=== PATIENT | female | born 1950 | race Caucasian/White ===

== ENCOUNTER 2021-08-12 17:50 | Inpatient (IN) ==
[2021-08-12] MEDS ORDERED: MOM Conc 10 ML UD.LIQ PO PRN (22:15)
[2021-08-12] MEDS ORDERED: Naloxone 0.4 MG/ML INJ IVP PRN (22:15)
[2021-08-12] MEDS ORDERED: Melatonin 3 MG TABLET PO PRN (22:15)
[2021-08-12] MEDS ORDERED: Ondansetron 4 MG/2 ML VIAL IVP PRN (22:15)
[2021-08-12] MEDS ORDERED: Perflutren Lipid Microsphere 1.3 ML in 0.9 % Sodium Chloride 8.7 ML IVP PRN (22:41)
[2021-08-12] MEDS ORDERED: *HR* Promethazine 25 MG/ML VIAL IM PRN (23:39)
[2021-08-12] MEDS ORDERED: D5% in Water 1,000 ML IVC PRN (23:41)
[2021-08-12] MEDS ORDERED: *HR* Dextrose 50 % in Water (Syg) 50 ML SYRINGE IVP PRN (23:41)
[2021-08-12] MEDS ORDERED: Dextrose Gel 15 GM/37.5 ML TUBE PO PRN ×2 (23:41)
[2021-08-13] MEDS: Insulin LISPRO 300 UNITS/3 ML VIAL SUBQ SCH ×6 (01:25→20:47)
[2021-08-13] MEDS: Acetaminophen 325 MG TABLET PO PRN ×3 (01:29→17:20)
[2021-08-13 04:44] LABS: Basophils % 0.3 %; Eosinophils # 0.1 K/mcL (0.0-0.6); Eosinophils % 2.2 %; Hematocrit 26.3 % (35.3-44.9); Hemoglobin 8.2 g/dL (11.5-15.4); Immature Granulocytes % 0.2 % (0-4); Lymphocytes # 0.8 K/mcL (0.6-4.6); Lymphocytes % 13.4 %; Mean Corpuscular HGB Conc 31.2 g/dL (31.6-35.5); Mean Corpuscular Hemoglobin 27.2 pg (28.0-33.3); Mean Corpuscular Volume 87.1 fL (83.0-100.0); Mean Platelet Volume 10.6 fL (9.4-12.4); Monocytes # 0.4 K/mcL (0.0-1.3); Monocytes % 7.2 %; Neutrophils # 4.6 K/mcL (1.6-8.9); Platelet Count 171 K/mcL (140-400); Red Blood Count 3.02 M/mcL (3.82-4.97); Red Cell Distribution Width 20.4 % (11.5-14.5); Segmented Neutrophils % 76.7 %
[2021-08-13 04:56] LABS: INR 1.1; Prothrombin Time 12.1 Seconds (9.4-12.1)
[2021-08-13 05:10] LABS: Alanine Aminotransferase < 3 Units/L (7-52); Albumin/Globulin Ratio 0.8 (1.1-2.2); Alkaline Phosphatase 45 Units/L (34-104); Aspartate Amino Transferase 10 Units/L (13-39); BUN/Creatinine Ratio 9 (6-26); Bilirubin,Total 0.4 mg/dL (0.3-1.0); Blood Urea Nitrogen 7 mg/dL (8-23); Calcium 8.6 mg/dL (8.6-10.3); Carbon Dioxide 29 mEq/L (23-29); Chloride 103 mEq/L (98-107); Globulin 3.8 g/dL (2.4-3.5); Glucose 95 mg/dL (70-105); Magnesium 1.8 mg/dL (1.6-2.6); Osmolality,Calculated 284 (280-300); Phosphorous 3.3 mg/dL (2.7-4.5); Potassium 3.1 mEq/L (3.5-5.1); Sodium 138 mEq/L (136-145); Total Protein 6.8 g/dL (6.4-8.9); eGFR For African Americans > 60 (> 60); eGFR For Non-African Americans > 60 (> 60)
[2021-08-13 05:21] LABS: Thyroid Stimulating Hormone 3.655 mcIU/mL (0.340-5.600)
[2021-08-13] MEDS: Pantoprazole 40 MG VIAL IVP SCH ×2 (05:24→17:08)
[2021-08-13] MEDS ORDERED: Hyaluronidase 200 UNIT in 0.9 % Sodium Chloride 10 ML SQ ONE (07:51)
[2021-08-13] MEDS ORDERED: MetroNIDAZOLE 500 MG/100 ML 500 MG/100 ML BAG IVPB SCH (08:00)
[2021-08-13] MEDS: metroNIDAZOLE 500 MG TABLET PO SCH ×2 (14:39→19:55)
[2021-08-13] MEDS: carvediloL 6.25 MG TABLET PO SCH ×2 (14:40→17:17)
[2021-08-13 19:41] LABS: Hematocrit 27.5 % (35.3-44.9); Hemoglobin 8.1 g/dL (11.5-15.4); Mean Corpuscular HGB Conc 29.5 g/dL (31.6-35.5); Mean Corpuscular Hemoglobin 26.9 pg (28.0-33.3); Mean Corpuscular Volume 91.4 fL (83.0-100.0); Mean Platelet Volume 10.9 fL (9.4-12.4); Platelet Count 123 K/mcL (140-400); Red Blood Count 3.01 M/mcL (3.82-4.97); Red Cell Distribution Width 20.3 % (11.5-14.5); White Blood Count 4.7 K/mcL (4.3-11.1)
[2021-08-14 01:59] LABS: Basophils % 0.5 %; Eosinophils # 0.3 K/mcL (0.0-0.6); Eosinophils % 7.8 %; Hematocrit 25.1 % (35.3-44.9); Immature Granulocytes % 0.2 % (0-4); Lymphocytes % 24.1 %; Mean Corpuscular HGB Conc 31.9 g/dL (31.6-35.5); Mean Corpuscular Hemoglobin 27.8 pg (28.0-33.3); Mean Corpuscular Volume 87.2 fL (83.0-100.0); Mean Platelet Volume 10.6 fL (9.4-12.4); Monocytes # 0.4 K/mcL (0.0-1.3); Monocytes % 9.4 %; Neutrophils # 2.5 K/mcL (1.6-8.9); Platelet Count 141 K/mcL (140-400); Red Blood Count 2.88 M/mcL (3.82-4.97); Red Cell Distribution Width 20.1 % (11.5-14.5); White Blood Count 4.2 K/mcL (4.3-11.1)
[2021-08-14 02:12] LABS: Alanine Aminotransferase < 3 Units/L (7-52); Albumin 2.9 g/dL (3.5-5.7); Albumin/Globulin Ratio 0.8 (1.1-2.2); Alkaline Phosphatase 50 Units/L (34-104); Aspartate Amino Transferase 8 Units/L (13-39); BUN/Creatinine Ratio 8 (6-26); Bilirubin,Total 0.4 mg/dL (0.3-1.0); Blood Urea Nitrogen 7 mg/dL (8-23); Calcium 8.6 mg/dL (8.6-10.3); Carbon Dioxide 29 mEq/L (23-29); Chloride 103 mEq/L (98-107); Globulin 3.6 g/dL (2.4-3.5); Glucose 84 mg/dL (70-105); Osmolality,Calculated 281 (280-300); Potassium 3.1 mEq/L (3.5-5.1); Sodium 137 mEq/L (136-145); Total Protein 6.5 g/dL (6.4-8.9); eGFR For African Americans > 60 (> 60); eGFR For Non-African Americans > 60 (> 60)
[2021-08-14] MEDS: Pantoprazole 40 MG VIAL IVP SCH ×2 (03:43→18:06)
[2021-08-14] MEDS: Insulin LISPRO 300 UNITS/3 ML VIAL SUBQ SCH ×4 (08:37→21:27)
[2021-08-14] MEDS: Acetaminophen 325 MG TABLET PO PRN ×2 (09:01→21:23)
[2021-08-14] MEDS: carvediloL 6.25 MG TABLET PO SCH ×2 (09:01→18:13)
[2021-08-14] MEDS: metroNIDAZOLE 500 MG TABLET PO SCH ×3 (09:01→21:23)
[2021-08-14] MEDS ORDERED: Potassium Chloride Elixir 20 MEQ/15 ML UDC PO ONE (11:36)
[2021-08-15 03:28] LABS: Basophils % 0.4 %; Eosinophils # 0.3 K/mcL (0.0-0.6); Eosinophils % 7.1 %; Hematocrit 26.2 % (35.3-44.9); Hemoglobin 7.9 g/dL (11.5-15.4); Immature Granulocytes % 0.4 % (0-4); Lymphocytes # 1.3 K/mcL (0.6-4.6); Lymphocytes % 27.8 %; Mean Corpuscular HGB Conc 30.2 g/dL (31.6-35.5); Mean Corpuscular Hemoglobin 26.6 pg (28.0-33.3); Mean Corpuscular Volume 88.2 fL (83.0-100.0); Mean Platelet Volume 10.1 fL (9.4-12.4); Monocytes # 0.4 K/mcL (0.0-1.3); Monocytes % 8.8 %; Neutrophils # 2.6 K/mcL (1.6-8.9); Platelet Count 125 K/mcL (140-400); Red Blood Count 2.97 M/mcL (3.82-4.97); Red Cell Distribution Width 20.5 % (11.5-14.5); Segmented Neutrophils % 55.5 %; White Blood Count 4.7 K/mcL (4.3-11.1)
[2021-08-15 03:42] LABS: Alanine Aminotransferase < 3 Units/L (7-52); Albumin 2.9 g/dL (3.5-5.7); Albumin/Globulin Ratio 0.8 (1.1-2.2); Alkaline Phosphatase 49 Units/L (34-104); Aspartate Amino Transferase 10 Units/L (13-39); BUN/Creatinine Ratio 8 (6-26); Bilirubin,Total 0.4 mg/dL (0.3-1.0); Blood Urea Nitrogen 7 mg/dL (8-23); Calcium 8.7 mg/dL (8.6-10.3); Carbon Dioxide 27 mEq/L (23-29); Chloride 106 mEq/L (98-107); Globulin 3.8 g/dL (2.4-3.5); Glucose 88 mg/dL (70-105); Osmolality,Calculated 281 (280-300); Potassium 3.7 mEq/L (3.5-5.1); Sodium 137 mEq/L (136-145); Total Protein 6.7 g/dL (6.4-8.9); eGFR For African Americans > 60 (> 60); eGFR For Non-African Americans > 60 (> 60)
[2021-08-15] MEDS: Pantoprazole 40 MG VIAL IVP SCH ×2 (06:12→16:40)
[2021-08-15] MEDS: Acetaminophen 325 MG TABLET PO PRN ×3 (06:42→23:11)
[2021-08-15] MEDS: Insulin LISPRO 300 UNITS/3 ML VIAL SUBQ SCH ×4 (09:46→20:50)
[2021-08-15] MEDS: carvediloL 6.25 MG TABLET PO SCH ×2 (09:51→16:34)
[2021-08-15] MEDS: metroNIDAZOLE 500 MG TABLET PO SCH ×3 (09:52→20:49)
[2021-08-15] MEDS: Gabapentin 300 MG CAPSULE PO SCH ×2 (16:33→20:49)
[2021-08-15] MEDS: Ipratropium/Albuterol Neb 3 ML IH PRN (20:27)
[2021-08-15] MEDS: Divalproex (12 HR) 250 MG TABLET PO SCH (20:49)
[2021-08-16] MEDS: Ipratropium/Albuterol Neb 3 ML IH PRN (00:16)
[2021-08-16 03:19] LABS: BUN/Creatinine Ratio 10 (6-26); Blood Urea Nitrogen 8 mg/dL (8-23); Calcium 8.7 mg/dL (8.6-10.3); Carbon Dioxide 27 mEq/L (23-29); Chloride 105 mEq/L (98-107); Glucose 89 mg/dL (70-105); Osmolality,Calculated 282 (280-300); Potassium 3.6 mEq/L (3.5-5.1); Sodium 137 mEq/L (136-145); eGFR For African Americans > 60 (> 60); eGFR For Non-African Americans > 60 (> 60)
[2021-08-16] MEDS: Pantoprazole 40 MG VIAL IVP SCH (06:15)
[2021-08-16] MEDS: Insulin LISPRO 300 UNITS/3 ML VIAL SUBQ SCH ×4 (07:56→21:37)
[2021-08-16] MEDS: Divalproex (12 HR) 250 MG TABLET PO SCH ×2 (08:08→21:28)
[2021-08-16] MEDS: Gabapentin 300 MG CAPSULE PO SCH ×3 (08:08→21:29)
[2021-08-16] MEDS: metroNIDAZOLE 500 MG TABLET PO SCH ×3 (08:08→21:28)
[2021-08-16] MEDS: carvediloL 6.25 MG TABLET PO SCH ×2 (08:08→16:07)
[2021-08-16] MEDS: Acetaminophen 325 MG TABLET PO PRN ×2 (12:09→21:29)
[2021-08-17] MEDS: Ipratropium/Albuterol Neb 3 ML IH PRN (00:33)
[2021-08-17 06:13] LABS: BUN/Creatinine Ratio 10 (6-26); Blood Urea Nitrogen 11 mg/dL (8-23); Calcium 8.6 mg/dL (8.6-10.3); Carbon Dioxide 30 mEq/L (23-29); Chloride 106 mEq/L (98-107); Glucose 106 mg/dL (70-105); Osmolality,Calculated 286 (280-300); Potassium 3.8 mEq/L (3.5-5.1); Sodium 138 mEq/L (136-145); eGFR For African Americans > 60 (> 60); eGFR For Non-African Americans 50 (> 60)
[2021-08-17] MEDS: Insulin LISPRO 300 UNITS/3 ML VIAL SUBQ SCH ×3 (09:22→16:01)
[2021-08-17] MEDS: Gabapentin 300 MG CAPSULE PO SCH ×2 (10:15→15:58)
[2021-08-17] MEDS: carvediloL 6.25 MG TABLET PO SCH ×2 (10:15→15:57)
[2021-08-17] MEDS: Divalproex (12 HR) 250 MG TABLET PO SCH (10:16)
[2021-08-17] MEDS: metroNIDAZOLE 500 MG TABLET PO SCH ×2 (10:16→15:57)
[2021-08-17] MEDS: Acetaminophen 325 MG TABLET PO PRN (10:19)
[2021-08-17 10:20] LABS: Hematocrit 30.4 % (35.3-44.9); Hemoglobin 9.1 g/dL (11.5-15.4)
[2021-08-17] MEDS ORDERED: Apixaban 5 MG TABLET PO SCH (10:45)
[2021-08-17 19:02] VITALS: BP 129/66; PULSE 81; TEMP 98.9; O2SAT 92
[2021-08-18] MEDS ORDERED: Aspirin Enteric Coated 81 MG Tablet PO SCH (09:00)
[2021-08-18] MEDS ORDERED: NON-FORMULARY MEDICATION 1 EACH EACH (Pantoprazole Sodium [Protonix] 40 MG Tablet.Dr) PO SCH (09:00)
== END 2021-08-17 19:29 | disposition home health service (06) | DRG 377 ==
LOC: 3ANU → OBSVTOIN 21:55 → SUATTDRO 21:55
PROVIDERS: ADMIT Pharmacist; ATTEND Family Medicine

== ENCOUNTER 2021-10-02 19:32 | Inpatient (IN) ==
[2021-10-03] MEDS ORDERED: Naloxone 0.4 MG/ML INJ IVP PRN (04:18)
[2021-10-03] MEDS ORDERED: Melatonin 3 MG TABLET PO PRN (04:18)
[2021-10-03 06:02] LABS: Basophils % 0.4 %; Eosinophils # 0.1 K/mcL (0.0-0.6); Hematocrit 26.3 % (35.3-44.9); Hemoglobin 8.2 g/dL (11.5-15.4); Immature Granulocytes % 0.3 % (0-4); Lymphocytes # 1.6 K/mcL (0.6-4.6); Lymphocytes % 22.9 %; Mean Corpuscular HGB Conc 31.2 g/dL (31.6-35.5); Mean Corpuscular Hemoglobin 27.5 pg (28.0-33.3); Mean Corpuscular Volume 88.3 fL (83.0-100.0); Mean Platelet Volume 10.9 fL (9.4-12.4); Monocytes # 0.6 K/mcL (0.0-1.3); Monocytes % 8.7 %; Neutrophils # 4.5 K/mcL (1.6-8.9); Platelet Count 212 K/mcL (140-400); Red Blood Count 2.98 M/mcL (3.82-4.97); Red Cell Distribution Width 19.7 % (11.5-14.5); Segmented Neutrophils % 66.7 %; White Blood Count 6.8 K/mcL (4.3-11.1)
[2021-10-03 06:11] LABS: INR 1.1; Prothrombin Time 12.5 Seconds (9.4-12.1)
[2021-10-03 06:13] LABS: Activated Partial Thrombo Time 24.7 Seconds (26.0-36.0)
[2021-10-03 06:17] LABS: Chol/HDL Ratio 5.5 (0-4.9); Phosphorous 2.6 mg/dL (2.7-4.5)
[2021-10-03 06:18] LABS: BUN/Creatinine Ratio 9 (6-26); Blood Urea Nitrogen 8 mg/dL (8-23); Calcium 8.8 mg/dL (8.6-10.3); Carbon Dioxide 31 mEq/L (23-29); Chloride 97 mEq/L (98-107); Glucose 97 mg/dL (70-105); Osmolality,Calculated 276 (280-300); Potassium 2.8 mEq/L (3.5-5.1); Sodium 134 mEq/L (136-145); eGFR For African Americans > 60 (> 60); eGFR For Non-African Americans > 60 (> 60)
[2021-10-03] MEDS ORDERED: Furosemide 20 MG/2 ML VIAL IVP ONE (06:42)
[2021-10-03] MEDS: Insulin LISPRO 300 UNITS/3 ML VIAL SUBQ SCH ×3 (09:42→18:47)
[2021-10-03] MEDS: Multivit/Ca/Min/Fe/FA 1 TAB TABLET PO SCH (09:54)
[2021-10-03] MEDS: Apixaban 5 MG TABLET PO SCH ×2 (09:54→21:14)
[2021-10-03] MEDS: Furosemide 40 MG TABLET PO SCH ×2 (09:54→21:14)
[2021-10-03] MEDS: Aspirin 81 MG TAB.CHEW PO SCH (09:54)
[2021-10-03] MEDS: Chlorhexidine Rinse 15 ML MOUTHWASH MM SCH ×2 (09:54→21:15)
[2021-10-03] MEDS: metroNIDAZOLE 500 MG TABLET PO SCH ×3 (09:54→21:14)
[2021-10-03] MEDS: Nicotine 21 MG PATCH.TD24 TD SCH (09:55)
[2021-10-03] MEDS: Divalproex (12 HR) 250 MG TABLET PO SCH ×2 (09:55→21:13)
[2021-10-03] MEDS: Lactobacillus 1 EACH CAP.SPRINK PO SCH ×2 (09:55→21:14)
[2021-10-03] MEDS: Ipratropium/Albuterol Neb 3 ML IH SCH ×3 (11:40→20:39)
[2021-10-03] MEDS: Budesonide/Formoterol 80/4.5 1 PUFF INH IH SCH ×2 (11:41→20:40)
[2021-10-03] MEDS: carvediloL 6.25 MG TABLET PO SCH ×2 (12:15→18:49)
[2021-10-03] MEDS: Acetaminophen 325 MG TABLET PO PRN (21:59)
[2021-10-04] MEDS: Acetaminophen 325 MG TABLET PO PRN (01:28)
[2021-10-04] MEDS: Ipratropium/Albuterol Neb 3 ML IH SCH ×2 (04:09→08:14)
[2021-10-04] MEDS: Multivit/Ca/Min/Fe/FA 1 TAB TABLET PO SCH (08:03)
[2021-10-04] MEDS: Lactobacillus 1 EACH CAP.SPRINK PO SCH ×2 (08:04→20:39)
[2021-10-04] MEDS: metroNIDAZOLE 500 MG TABLET PO SCH ×3 (08:04→20:39)
[2021-10-04] MEDS: Divalproex (12 HR) 250 MG TABLET PO SCH ×2 (08:04→20:48)
[2021-10-04] MEDS: carvediloL 6.25 MG TABLET PO SCH ×2 (08:04→17:17)
[2021-10-04] MEDS: Apixaban 5 MG TABLET PO SCH (08:04)
[2021-10-04] MEDS: Aspirin 81 MG TAB.CHEW PO SCH (08:04)
[2021-10-04] MEDS: Nicotine 21 MG PATCH.TD24 TD SCH (08:04)
[2021-10-04] MEDS: Furosemide 40 MG TABLET PO SCH ×2 (08:04→20:39)
[2021-10-04] MEDS: Chlorhexidine Rinse 15 ML MOUTHWASH MM SCH ×2 (08:09→21:00)
[2021-10-04] MEDS: Budesonide/Formoterol 80/4.5 1 PUFF INH IH SCH ×2 (08:14→21:11)
[2021-10-04] MEDS: Insulin LISPRO 300 UNITS/3 ML VIAL SUBQ SCH ×3 (08:14→17:16)
[2021-10-04 08:52] LABS: Basophils % 0.5 %; Eosinophils # 0.1 K/mcL (0.0-0.6); Eosinophils % 1.5 %; Hemoglobin 7.8 g/dL (11.5-15.4); Immature Granulocytes % 0.5 % (0-4); Lymphocytes # 1.2 K/mcL (0.6-4.6); Lymphocytes % 20.6 %; Mean Corpuscular Hemoglobin 27.2 pg (28.0-33.3); Mean Corpuscular Volume 90.6 fL (83.0-100.0); Mean Platelet Volume 10.4 fL (9.4-12.4); Monocytes # 0.5 K/mcL (0.0-1.3); Monocytes % 7.7 %; Neutrophils # 4.1 K/mcL (1.6-8.9); Platelet Count 177 K/mcL (140-400); Red Blood Count 2.87 M/mcL (3.82-4.97); Red Cell Distribution Width 19.4 % (11.5-14.5); Segmented Neutrophils % 69.2 %
[2021-10-04 09:11] LABS: Calcium 8.4 mg/dL (8.6-10.3)
[2021-10-04] MEDS ORDERED: 0.9 % Sodium Chloride 250 ML ONE (10:45)
[2021-10-04] MEDS ORDERED: Perflutren Lipid Microsphere 1.3 ML in 0.9 % Sodium Chloride 8.7 ML IVP PRN (13:35)
[2021-10-04] MEDS: Gabapentin 300 MG CAPSULE PO SCH (20:39)
[2021-10-05] MEDS: Insulin LISPRO 300 UNITS/3 ML VIAL SUBQ SCH ×3 (08:30→16:11)
[2021-10-05] MEDS: Gabapentin 300 MG CAPSULE PO SCH ×3 (08:43→19:24)
[2021-10-05] MEDS: metroNIDAZOLE 500 MG TABLET PO SCH ×3 (08:43→19:26)
[2021-10-05] MEDS: Lactobacillus 1 EACH CAP.SPRINK PO SCH ×2 (08:44→19:27)
[2021-10-05] MEDS: Nicotine 21 MG PATCH.TD24 TD SCH (08:44)
[2021-10-05] MEDS: carvediloL 6.25 MG TABLET PO SCH ×2 (08:44→15:59)
[2021-10-05] MEDS: Furosemide 40 MG TABLET PO SCH ×2 (08:44→19:24)
[2021-10-05] MEDS: Aspirin 81 MG TAB.CHEW PO SCH (08:44)
[2021-10-05] MEDS: Multivit/Ca/Min/Fe/FA 1 TAB TABLET PO SCH (08:44)
[2021-10-05] MEDS: Chlorhexidine Rinse 15 ML MOUTHWASH MM SCH ×3 (08:59→20:35)
[2021-10-05] MEDS: Divalproex (12 HR) 250 MG TABLET PO SCH ×2 (09:09→19:27)
[2021-10-05 09:39] LABS: Basophils % 0.2 %; Eosinophils # 0.2 K/mcL (0.0-0.6); Hematocrit 29.3 % (35.3-44.9); Hemoglobin 8.8 g/dL (11.5-15.4); Immature Granulocytes % 0.3 % (0-4); Lymphocytes # 1.3 K/mcL (0.6-4.6); Lymphocytes % 21.1 %; Mean Corpuscular Hemoglobin 27.1 pg (28.0-33.3); Mean Corpuscular Volume 90.2 fL (83.0-100.0); Mean Platelet Volume 10.2 fL (9.4-12.4); Monocytes # 0.4 K/mcL (0.0-1.3); Monocytes % 7.2 %; Neutrophils # 4.2 K/mcL (1.6-8.9); Platelet Count 202 K/mcL (140-400); Red Blood Count 3.25 M/mcL (3.82-4.97); Red Cell Distribution Width 19.5 % (11.5-14.5); Segmented Neutrophils % 68.2 %; White Blood Count 6.1 K/mcL (4.3-11.1)
[2021-10-05] MEDS: Budesonide/Formoterol 80/4.5 1 PUFF INH IH SCH ×2 (10:11→20:20)
[2021-10-05 11:43] LABS: Estimated Average Glucose 97 mg/dl
[2021-10-05 13:25] LABS: % Iron Saturation 6 % (15-50); Alanine Aminotransferase < 3 Units/L (7-52); Albumin 3.1 g/dL (3.5-5.7); Albumin/Globulin Ratio 0.8 (1.1-2.2); Alkaline Phosphatase 57 Units/L (34-104); Aspartate Amino Transferase 12 Units/L (13-39); BUN/Creatinine Ratio 11 (6-26); Bilirubin,Direct 0.1 mg/dL (0.0-0.2); Bilirubin,Indirect 0.4 mg/dL (0.0-1.0); Bilirubin,Total 0.5 mg/dL (0.3-1.0); Blood Urea Nitrogen 12 mg/dL (8-23); Calcium 8.7 mg/dL (8.6-10.3); Carbon Dioxide 31 mEq/L (23-29); Chloride 99 mEq/L (98-107); Ferritin 59 ng/mL (10-120); Folate 6.1 ng/mL (3.0-16.0); Glucose 128 mg/dL (70-105); Iron 16 mcg/dL (50-170); Magnesium 1.9 mg/dL (1.6-2.6); Osmolality,Calculated 285 (280-300); Potassium 3.2 mEq/L (3.5-5.1); Sodium 137 mEq/L (136-145); Total Protein 7.1 g/dL (6.4-8.9); Transferrin 188 mg/dL (203-362); eGFR For African Americans 57 (> 60); eGFR For Non-African Americans 47 (> 60)
[2021-10-05] MEDS ORDERED: Iron Sucrose Complex 200 MG in 0.9 % Sodium Chloride 100 ML IVPB ONE (18:03)
[2021-10-05] MEDS: Apixaban 5 MG TABLET PO SCH (19:25)
[2021-10-06 04:51] LABS: Basophils % 0.4 %; Eosinophils # 0.2 K/mcL (0.0-0.6); Eosinophils % 2.9 %; Hematocrit 25.1 % (35.3-44.9); Hemoglobin 7.5 g/dL (11.5-15.4); Immature Granulocytes % 0.2 % (0-4); Mean Corpuscular HGB Conc 29.9 g/dL (31.6-35.5); Mean Corpuscular Volume 90.3 fL (83.0-100.0); Mean Platelet Volume 10.7 fL (9.4-12.4); Monocytes # 0.4 K/mcL (0.0-1.3); Monocytes % 7.6 %; Neutrophils # 3.9 K/mcL (1.6-8.9); Platelet Count 179 K/mcL (140-400); Red Blood Count 2.78 M/mcL (3.82-4.97); Red Cell Distribution Width 19.5 % (11.5-14.5); Segmented Neutrophils % 70.9 %; White Blood Count 5.6 K/mcL (4.3-11.1)
[2021-10-06 04:56] LABS: Calcium 8.4 mg/dL (8.6-10.3); Magnesium 1.9 mg/dL (1.6-2.6); Potassium 3.9 mEq/L (3.5-5.1)
[2021-10-06] MEDS: Budesonide/Formoterol 80/4.5 1 PUFF INH IH SCH ×2 (07:46→20:35)
[2021-10-06] MEDS: Insulin LISPRO 300 UNITS/3 ML VIAL SUBQ SCH ×3 (09:15→17:52)
[2021-10-06] MEDS: metroNIDAZOLE 500 MG TABLET PO SCH ×3 (09:18→20:41)
[2021-10-06] MEDS: Nicotine 21 MG PATCH.TD24 TD SCH (09:18)
[2021-10-06] MEDS: Lactobacillus 1 EACH CAP.SPRINK PO SCH ×2 (09:19→20:41)
[2021-10-06] MEDS: carvediloL 6.25 MG TABLET PO SCH ×2 (09:19→16:18)
[2021-10-06] MEDS: Gabapentin 300 MG CAPSULE PO SCH ×3 (09:19→20:41)
[2021-10-06] MEDS: Multivit/Ca/Min/Fe/FA 1 TAB TABLET PO SCH (09:20)
[2021-10-06] MEDS: Apixaban 5 MG TABLET PO SCH ×2 (09:20→20:41)
[2021-10-06] MEDS: Aspirin 81 MG TAB.CHEW PO SCH (09:20)
[2021-10-06] MEDS: Divalproex (12 HR) 250 MG TABLET PO SCH ×2 (09:20→20:41)
[2021-10-06] MEDS: Chlorhexidine Rinse 15 ML MOUTHWASH MM SCH ×2 (09:20→20:41)
[2021-10-07 07:48] LABS: Basophils % 0.6 %; Eosinophils # 0.2 K/mcL (0.0-0.6); Eosinophils % 3.5 %; Hematocrit 23.8 % (35.3-44.9); Hemoglobin 7.4 g/dL (11.5-15.4); Immature Granulocytes % 0.2 % (0-4); Lymphocytes # 1.6 K/mcL (0.6-4.6); Lymphocytes % 29.8 %; Mean Corpuscular HGB Conc 31.1 g/dL (31.6-35.5); Mean Corpuscular Hemoglobin 27.9 pg (28.0-33.3); Mean Corpuscular Volume 89.8 fL (83.0-100.0); Mean Platelet Volume 10.9 fL (9.4-12.4); Monocytes # 0.5 K/mcL (0.0-1.3); Monocytes % 9.8 %; Platelet Count 175 K/mcL (140-400); Red Blood Count 2.65 M/mcL (3.82-4.97); Red Cell Distribution Width 19.5 % (11.5-14.5); Segmented Neutrophils % 56.1 %; White Blood Count 5.4 K/mcL (4.3-11.1)
[2021-10-07] MEDS: Nicotine 21 MG PATCH.TD24 TD SCH (07:52)
[2021-10-07] MEDS: Apixaban 5 MG TABLET PO SCH ×2 (07:52→20:14)
[2021-10-07] MEDS: Gabapentin 300 MG CAPSULE PO SCH ×3 (07:52→20:14)
[2021-10-07] MEDS: carvediloL 6.25 MG TABLET PO SCH ×2 (07:52→16:21)
[2021-10-07] MEDS: Lactobacillus 1 EACH CAP.SPRINK PO SCH ×2 (07:52→20:14)
[2021-10-07] MEDS: Divalproex (12 HR) 250 MG TABLET PO SCH ×2 (07:52→20:14)
[2021-10-07] MEDS: metroNIDAZOLE 500 MG TABLET PO SCH ×3 (07:52→20:14)
[2021-10-07] MEDS: Aspirin 81 MG TAB.CHEW PO SCH (07:52)
[2021-10-07] MEDS: Multivit/Ca/Min/Fe/FA 1 TAB TABLET PO SCH (07:52)
[2021-10-07] MEDS: Chlorhexidine Rinse 15 ML MOUTHWASH MM SCH ×2 (07:58→20:14)
[2021-10-07 08:05] LABS: Calcium 8.3 mg/dL (8.6-10.3); Magnesium 1.9 mg/dL (1.6-2.6); Potassium 3.5 mEq/L (3.5-5.1)
[2021-10-07] MEDS: Insulin LISPRO 300 UNITS/3 ML VIAL SUBQ SCH ×3 (08:13→16:24)
[2021-10-07] MEDS: Budesonide/Formoterol 80/4.5 1 PUFF INH IH SCH ×2 (08:49→21:09)
[2021-10-08 02:30] LABS: Basophils % 0.4 %; Eosinophils # 0.2 K/mcL (0.0-0.6); Eosinophils % 3.3 %; Hematocrit 23.4 % (35.3-44.9); Hemoglobin 7.3 g/dL (11.5-15.4); Immature Granulocytes % 0.2 % (0-4); Lymphocytes # 1.8 K/mcL (0.6-4.6); Lymphocytes % 34.4 %; Mean Corpuscular HGB Conc 31.2 g/dL (31.6-35.5); Mean Corpuscular Volume 89.7 fL (83.0-100.0); Mean Platelet Volume 11.1 fL (9.4-12.4); Monocytes # 0.5 K/mcL (0.0-1.3); Monocytes % 10.5 %; Neutrophils # 2.6 K/mcL (1.6-8.9); Platelet Count 164 K/mcL (140-400); Red Blood Count 2.61 M/mcL (3.82-4.97); Red Cell Distribution Width 19.4 % (11.5-14.5); Segmented Neutrophils % 51.2 %; White Blood Count 5.1 K/mcL (4.3-11.1)
[2021-10-08 02:47] LABS: Calcium 8.2 mg/dL (8.6-10.3); Potassium 3.4 mEq/L (3.5-5.1)
[2021-10-08] MEDS: Gabapentin 300 MG CAPSULE PO SCH ×3 (08:53→20:32)
[2021-10-08] MEDS: Lactobacillus 1 EACH CAP.SPRINK PO SCH ×2 (08:53→20:32)
[2021-10-08] MEDS: metroNIDAZOLE 500 MG TABLET PO SCH ×3 (08:53→20:32)
[2021-10-08] MEDS: Divalproex (12 HR) 250 MG TABLET PO SCH ×2 (08:53→20:32)
[2021-10-08] MEDS: Multivit/Ca/Min/Fe/FA 1 TAB TABLET PO SCH (08:53)
[2021-10-08] MEDS: carvediloL 6.25 MG TABLET PO SCH ×2 (08:53→16:23)
[2021-10-08] MEDS: Aspirin 81 MG TAB.CHEW PO SCH (08:53)
[2021-10-08] MEDS: Nicotine 21 MG PATCH.TD24 TD SCH (08:54)
[2021-10-08] MEDS: Chlorhexidine Rinse 15 ML MOUTHWASH MM SCH ×2 (08:55→20:31)
[2021-10-08] MEDS: Apixaban 5 MG TABLET PO SCH ×2 (09:00→15:33)
[2021-10-08] MEDS: Insulin LISPRO 300 UNITS/3 ML VIAL SUBQ SCH ×3 (09:00→17:22)
[2021-10-08] MEDS: Budesonide/Formoterol 80/4.5 1 PUFF INH IH SCH ×2 (11:10→21:09)
[2021-10-08] MEDS: Acetaminophen 325 MG TABLET PO PRN (22:33)
[2021-10-09 05:24] LABS: Basophils % 0.4 %; Eosinophils # 0.1 K/mcL (0.0-0.6); Eosinophils % 2.6 %; Hemoglobin 7.9 g/dL (11.5-15.4); Immature Granulocytes % 0.4 % (0-4); Lymphocytes # 1.4 K/mcL (0.6-4.6); Lymphocytes % 28.8 %; Mean Corpuscular HGB Conc 30.4 g/dL (31.6-35.5); Mean Corpuscular Hemoglobin 27.3 pg (28.0-33.3); Mean Platelet Volume 10.7 fL (9.4-12.4); Monocytes # 0.3 K/mcL (0.0-1.3); Monocytes % 6.4 %; Neutrophils # 3.1 K/mcL (1.6-8.9); Platelet Count 178 K/mcL (140-400); Red Blood Count 2.89 M/mcL (3.82-4.97); Red Cell Distribution Width 19.1 % (11.5-14.5); Segmented Neutrophils % 61.4 %
[2021-10-09 05:47] LABS: Platelet Estimate Normal (Normal)
[2021-10-09 05:49] LABS: Calcium 8.6 mg/dL (8.6-10.3); Potassium 3.9 mEq/L (3.5-5.1)
[2021-10-09] MEDS: Insulin LISPRO 300 UNITS/3 ML VIAL SUBQ SCH ×3 (08:32→16:31)
[2021-10-09] MEDS: Budesonide/Formoterol 80/4.5 1 PUFF INH IH SCH ×2 (08:50→20:42)
[2021-10-09] MEDS: Chlorhexidine Rinse 15 ML MOUTHWASH MM SCH ×4 (10:33→23:09)
[2021-10-09] MEDS: Divalproex (12 HR) 250 MG TABLET PO SCH ×2 (10:33→22:02)
[2021-10-09] MEDS: Lactobacillus 1 EACH CAP.SPRINK PO SCH ×2 (10:33→22:02)
[2021-10-09] MEDS: metroNIDAZOLE 500 MG TABLET PO SCH ×3 (10:33→22:02)
[2021-10-09] MEDS: Aspirin 81 MG TAB.CHEW PO SCH (10:34)
[2021-10-09] MEDS: carvediloL 6.25 MG TABLET PO SCH ×2 (10:34→17:04)
[2021-10-09] MEDS: Multivit/Ca/Min/Fe/FA 1 TAB TABLET PO SCH (10:34)
[2021-10-09] MEDS: Nicotine 21 MG PATCH.TD24 TD SCH (10:35)
[2021-10-09] MEDS: Gabapentin 300 MG CAPSULE PO SCH ×3 (10:35→22:01)
[2021-10-09] MEDS ORDERED: Cyanocobalamin (B-12) 1,000 MCG/ML VIAL SQ ONE (11:41)
[2021-10-09] MEDS: Iron Sucrose Complex 200 MG in 0.9 % Sodium Chloride 100 ML IVPB SCH (13:27)
[2021-10-09] MEDS ORDERED: SODIUM CHLORIDE/NAHCO3/KCL/PEG 4,000 ML SOLN.RECON PO ONE (17:00)
[2021-10-09] MEDS: Ondansetron 4 MG/2 ML VIAL IVP PRN (22:18)
[2021-10-10 05:24] LABS: Basophils % 0.4 %; Eosinophils # 0.1 K/mcL (0.0-0.6); Eosinophils % 1.6 %; Hematocrit 27.5 % (35.3-44.9); Hemoglobin 8.5 g/dL (11.5-15.4); Immature Granulocytes % 0.2 % (0-4); Lymphocytes # 1.3 K/mcL (0.6-4.6); Lymphocytes % 26.3 %; Mean Corpuscular HGB Conc 30.9 g/dL (31.6-35.5); Mean Corpuscular Hemoglobin 27.8 pg (28.0-33.3); Mean Corpuscular Volume 89.9 fL (83.0-100.0); Mean Platelet Volume 10.7 fL (9.4-12.4); Monocytes # 0.3 K/mcL (0.0-1.3); Monocytes % 6.7 %; Neutrophils # 3.2 K/mcL (1.6-8.9); Platelet Count 191 K/mcL (140-400); Red Blood Count 3.06 M/mcL (3.82-4.97); Red Cell Distribution Width 19.1 % (11.5-14.5); Segmented Neutrophils % 64.8 %; White Blood Count 4.9 K/mcL (4.3-11.1)
[2021-10-10 05:44] LABS: Calcium 8.6 mg/dL (8.6-10.3); Magnesium 2.3 mg/dL (1.6-2.6); Potassium 3.6 mEq/L (3.5-5.1)
[2021-10-10 06:19] LABS: Hypochromasia Present (Not Present); Platelet Estimate Normal (Normal)
[2021-10-10 06:20] LABS: Anisocytosis 1+ (Not Present)
[2021-10-10] MEDS: Budesonide/Formoterol 80/4.5 1 PUFF INH IH SCH ×2 (07:25→20:19)
[2021-10-10] MEDS ORDERED: Ondansetron 4 MG/2 ML VIAL IVP STA (08:53)
[2021-10-10] MEDS: Insulin LISPRO 300 UNITS/3 ML VIAL SUBQ SCH ×3 (09:03→17:36)
[2021-10-10] MEDS: Lactobacillus 1 EACH CAP.SPRINK PO SCH ×2 (09:18→22:06)
[2021-10-10] MEDS: carvediloL 6.25 MG TABLET PO SCH ×2 (09:18→18:36)
[2021-10-10] MEDS: metroNIDAZOLE 500 MG TABLET PO SCH ×3 (09:18→22:07)
[2021-10-10] MEDS: Divalproex (12 HR) 250 MG TABLET PO SCH ×2 (09:19→22:07)
[2021-10-10] MEDS: Gabapentin 300 MG CAPSULE PO SCH ×3 (09:19→22:07)
[2021-10-10] MEDS: Aspirin 81 MG TAB.CHEW PO SCH (09:19)
[2021-10-10] MEDS: Multivit/Ca/Min/Fe/FA 1 TAB TABLET PO SCH (09:19)
[2021-10-10] MEDS: Nicotine 21 MG PATCH.TD24 TD SCH (09:26)
[2021-10-10] MEDS: Iron Sucrose Complex 200 MG in 0.9 % Sodium Chloride 100 ML IVPB SCH (09:42)
[2021-10-10] MEDS ORDERED: SODIUM CHLORIDE/NAHCO3/KCL/PEG 4,000 ML SOLN.RECON PO ONE (17:00)
[2021-10-11] MEDS: Ondansetron 4 MG/2 ML VIAL IVP PRN (02:09)
[2021-10-11] MEDS ORDERED: Isovue-370 500 ML BOTTLE IVP ONE (02:54)
[2021-10-11 06:52] LABS: Basophils % 0.3 %; Eosinophils # 0.1 K/mcL (0.0-0.6); Hemoglobin 9.4 g/dL (11.5-15.4); Immature Granulocytes % 0.3 % (0-4); Lymphocytes # 1.3 K/mcL (0.6-4.6); Lymphocytes % 20.7 %; Mean Corpuscular HGB Conc 30.3 g/dL (31.6-35.5); Mean Corpuscular Hemoglobin 27.2 pg (28.0-33.3); Mean Corpuscular Volume 89.6 fL (83.0-100.0); Mean Platelet Volume 11.2 fL (9.4-12.4); Monocytes # 0.5 K/mcL (0.0-1.3); Monocytes % 7.3 %; Neutrophils # 4.4 K/mcL (1.6-8.9); Platelet Count 207 K/mcL (140-400); Red Blood Count 3.46 M/mcL (3.82-4.97); Red Cell Distribution Width 19.1 % (11.5-14.5); Segmented Neutrophils % 70.4 %; White Blood Count 6.3 K/mcL (4.3-11.1)
[2021-10-11 07:12] LABS: Hypochromasia Present (Not Present); Platelet Estimate Normal (Normal)
[2021-10-11] MEDS: Budesonide/Formoterol 80/4.5 1 PUFF INH IH SCH ×2 (07:36→20:46)
[2021-10-11] MEDS: Insulin LISPRO 300 UNITS/3 ML VIAL SUBQ SCH ×3 (08:47→17:00)
[2021-10-11] MEDS: carvediloL 6.25 MG TABLET PO SCH ×2 (08:48→16:28)
[2021-10-11] MEDS: Aspirin 81 MG TAB.CHEW PO SCH (08:54)
[2021-10-11] MEDS: Nicotine 21 MG PATCH.TD24 TD SCH (08:54)
[2021-10-11] MEDS: Multivit/Ca/Min/Fe/FA 1 TAB TABLET PO SCH (08:54)
[2021-10-11] MEDS: Lactobacillus 1 EACH CAP.SPRINK PO SCH ×2 (08:54→22:55)
[2021-10-11] MEDS: Gabapentin 300 MG CAPSULE PO SCH ×3 (08:54→22:56)
[2021-10-11] MEDS: Divalproex (12 HR) 250 MG TABLET PO SCH ×2 (08:54→22:55)
[2021-10-11] MEDS: metroNIDAZOLE 500 MG TABLET PO SCH (08:54)
[2021-10-11] MEDS: Apixaban 5 MG TABLET PO SCH (09:07)
[2021-10-11 10:19] LABS: Calcium 8.9 mg/dL (8.6-10.3); Magnesium 2.4 mg/dL (1.6-2.6)
[2021-10-11] MEDS: 0.9 % Sodium Chloride 1,000 ML IVC SCH ×2 (16:34→23:37)
[2021-10-11] MEDS ORDERED: Lidocaine HCL 4 ML Topical Solution (Laryng-O-Jet Kit Sterile Pak) TP ONE (19:10)
[2021-10-11] MEDS ORDERED: *HR* Propofol 200 MG/20 ML VIAL IVP ONE (19:13)
[2021-10-11] MEDS ORDERED: Lidocaine -MPF 2% 5 ML VIAL ONE (19:14)
[2021-10-11] MEDS ORDERED: *HR* FentaNYL (PF) 100 MCG/2 ML VIAL ONE (19:14)
[2021-10-11] MEDS ORDERED: *HR* Rocuronium Bromide 50 MG/5 ML VIAL ONE (19:14)
[2021-10-11] MEDS ORDERED: Ketamine HCL *QUVA* 50mg (1mL) SYRINGE ONE (19:15)
[2021-10-11] MEDS ORDERED: CefOXitin 1,000 MG VIAL ONE (19:20)
[2021-10-11] MEDS ORDERED: cefOXitin 2,000 MG in Water for inj. (sterile) 10 ML IVP ONE (19:31)
[2021-10-11] MEDS ORDERED: Ondansetron 4 MG/2 ML VIAL IVP PRN (19:44)
[2021-10-11] MEDS ORDERED: *HR* FentaNYL (PF) 100 MCG/2 ML VIAL IVP PRN (19:44)
[2021-10-11] MEDS ORDERED: Albuterol 2.5 MG/3 ML NEBULIZER IH PRN (19:44)
[2021-10-11] MEDS ORDERED: CefOXitin 2,000 MG VIAL ONE (19:47)
[2021-10-11] MEDS ORDERED: Ondansetron 4 MG/2 ML VIAL ONE (20:05)
[2021-10-11] MEDS ORDERED: Acetaminophen IV 1,000 MG/100 ML BAG IVPB ONE ×2 (20:15→20:24)
[2021-10-11] MEDS ORDERED: *HR* HYDROMORPHONE 2 MG/ML VIAL ONE (20:17)
[2021-10-11] MEDS ORDERED: Albumin Human 5% 25.0 GM/500 ML IV.SOLN ONE (20:48)
[2021-10-11] MEDS ORDERED: *HR* EPINEPHrine 1 MG/10 ML SYRINGE ONE (21:05)
[2021-10-11] MEDS ORDERED: Heparin 1,000 UNITS/500 mL 500 ML ONE (21:32)
[2021-10-11] MEDS ORDERED: *HR* Midazolam HCl 2 MG/2 ML VIAL ONE (21:32)
[2021-10-11] MEDS ORDERED: Artificial Tears SOLN 15 ML BOTTLE BOTH EYES PRN (22:46)
[2021-10-11] MEDS ORDERED: Ringers Solution, Lactated 500 ML IVC ONE (23:00)
[2021-10-11] MEDS: FentaNYL (PF) 1,000 MCG/100 ML IV.SOLN IVC SCH (23:15)
[2021-10-11] MEDS: Artificial Tears SOLN 15 ML BOTTLE BOTH EYES SCH (23:16)
[2021-10-11 23:38] LABS: ABG Base Excess 3 mEq/L (-2 to 3); ABG HCO3 29 mEq/L (21-27); ABG Oxygen Saturation 100 % (95-98); ABG PCO2 52 mmHg (35-45); ABG PH 7.35 pH Units (7.32-7.45); ABG PO2 436 mmHg (85-104); ABG TCO2 30 mEq/L (20-26); Blood Gas VT 420 cc
[2021-10-12] MEDS: MetroNIDAZOLE 500 MG/100 ML 500 MG/100 ML BAG IVPB SCH ×3 (00:48→17:32)
[2021-10-12] MEDS: Albumin Human 5% 12.5 GM/250 ML IV.SOLN IVC SCH ×4 (00:49→09:26)
[2021-10-12 01:39] LABS: Calcium 7.4 mg/dL (8.6-10.3); Magnesium 2.1 mg/dL (1.6-2.6); Phosphorous 4.6 mg/dL (2.7-4.5); Potassium 4.3 mEq/L (3.5-5.1)
[2021-10-12] MEDS ORDERED: Ringers Solution, Lactated 1,000 ML IVC ONE (01:40)
[2021-10-12 01:46] LABS: Hematocrit 16.5 % (35.3-44.9)
[2021-10-12 01:49] LABS: Hemoglobin 5.1 g/dL (11.5-15.4)
[2021-10-12 04:18] LABS: ABG Base Excess 2 mEq/L (-2 to 3); ABG HCO3 27 mEq/L (21-27); ABG Oxygen Saturation 99 % (95-98); ABG PCO2 46 mmHg (35-45); ABG PH 7.38 pH Units (7.32-7.45); ABG PO2 142 mmHg (85-104); ABG TCO2 29 mEq/L (20-26); Blood Gas VT 420 cc
[2021-10-12] MEDS: Pantoprazole 40 MG VIAL IVP SCH (05:33)
[2021-10-12] MEDS: Budesonide/Formoterol 80/4.5 1 PUFF INH IH SCH ×2 (07:37→20:01)
[2021-10-12] MEDS ORDERED: Lidocaine -MPF 1% 5 ML AMPUL INFILT ONE (08:00)
[2021-10-12 08:27] LABS: Hematocrit 15.8 % (35.3-44.9); Mean Corpuscular Hemoglobin 27.7 pg (28.0-33.3); Mean Corpuscular Volume 89.3 fL (83.0-100.0); Mean Platelet Volume 11.5 fL (9.4-12.4); Platelet Count 143 K/mcL (140-400); Red Blood Count 1.77 M/mcL (3.82-4.97); Red Cell Distribution Width 18.8 % (11.5-14.5); White Blood Count 5.6 K/mcL (4.3-11.1)
[2021-10-12 08:31] LABS: Hemoglobin 4.9 g/dL (11.5-15.4)
[2021-10-12 08:39] LABS: VBG Ionized Calcium 1.05 mmol/L (1.15-1.35)
[2021-10-12 08:40] LABS: Alanine Aminotransferase < 3 Units/L (7-52); Albumin 2.6 g/dL (3.5-5.7); Albumin/Globulin Ratio 1.2 (1.1-2.2); Alkaline Phosphatase 23 Units/L (34-104); Aspartate Amino Transferase 15 Units/L (13-39); BUN/Creatinine Ratio 20 (6-26); Bilirubin,Total 0.4 mg/dL (0.3-1.0); Blood Urea Nitrogen 33 mg/dL (8-23); Calcium 7.5 mg/dL (8.6-10.3); Carbon Dioxide 27 mEq/L (23-29); Chloride 106 mEq/L (98-107); Globulin 2.2 g/dL (2.4-3.5); Glucose 188 mg/dL (70-105); Magnesium 1.9 mg/dL (1.6-2.6); Osmolality,Calculated 294 (280-300); Phosphorous 4.3 mg/dL (2.7-4.5); Potassium 3.9 mEq/L (3.5-5.1); Sodium 136 mEq/L (136-145); Total Protein 4.8 g/dL (6.4-8.9); eGFR For African Americans 37 (> 60); eGFR For Non-African Americans 31 (> 60)
[2021-10-12] MEDS ORDERED: Calcium Gluconate 1gm/50mL 1 GM/50 ML BAG IVPB PRN (08:42)
[2021-10-12] MEDS: Chlorhexidine Rinse 15 ML MOUTHWASH MM SCH ×2 (08:52→20:29)
[2021-10-12] MEDS: Artificial Tears SOLN 15 ML BOTTLE BOTH EYES SCH ×5 (08:56→20:29)
[2021-10-12] MEDS: Midazolam HCl 50 MG/100 ML IV.SOLN IVC SCH ×3 (08:57→13:23)
[2021-10-12] MEDS: carvediloL 6.25 MG TABLET PO SCH ×2 (08:57→17:27)
[2021-10-12] MEDS: Insulin LISPRO 300 UNITS/3 ML VIAL SUBQ SCH ×3 (08:57→20:29)
[2021-10-12] MEDS: Aspirin 81 MG TAB.CHEW PO SCH (08:58)
[2021-10-12] MEDS: Gabapentin 300 MG CAPSULE PO SCH (08:59)
[2021-10-12] MEDS: Lactobacillus 1 EACH CAP.SPRINK PO SCH ×2 (08:59→18:36)
[2021-10-12] MEDS: Multivit/Ca/Min/Fe/FA 1 TAB TABLET PO SCH (08:59)
[2021-10-12] MEDS: Divalproex (12 HR) 250 MG TABLET PO SCH (08:59)
[2021-10-12 09:27] LABS: Anisocytosis 1+ (Not Present); Monocytes # 0.1 K/mcL (0.0-1.3); Neutrophils # 4.5 K/mcL (1.6-8.9)
[2021-10-12 09:28] LABS: Large Platelets Present (Not Present); Platelet Estimate Normal (Normal); Reactive Lymphocytes Present (Not Present)
[2021-10-12] MEDS: Nicotine 21 MG PATCH.TD24 TD SCH (09:46)
[2021-10-12] MEDS ORDERED: Insulin LISPRO 300 UNITS/3 ML VIAL SUBQ SCH (12:00)
[2021-10-12 12:15] LABS: Triglycerides 129 mg/dL (< 150)
[2021-10-12] MEDS ORDERED: D10% in Water 500 ML IVC PRN (12:37)
[2021-10-12] MEDS ORDERED: 0.9 % Sodium Chloride 250 ML ONE (12:38)
[2021-10-12] MEDS: Valproic Acid INJ 250 MG in 0.9 % Sodium Chloride 100 ML IVPB SCH (12:59)
[2021-10-12] MEDS: FentaNYL (PF) 1,000 MCG/100 ML IV.SOLN IVC SCH (13:12)
[2021-10-12] MEDS ORDERED: Furosemide 20 MG/2 ML VIAL IVP ONE (14:19)
[2021-10-12] MEDS ORDERED: Clinimix E 5%-15% SOLUTION 2,000 ML with MVI, adult with vitamin K 10 ML IVC SCH (17:00)
[2021-10-12] MEDS: Norepinephrine 4 MG/254 ML IV.SOLN IVC SCH (17:26)
[2021-10-12] MEDS: Fat Emulsion 250 ML IVPB SCH (17:39)
[2021-10-12 19:23] LABS: Hematocrit 22.5 % (35.3-44.9)
[2021-10-12 19:24] LABS: Hemoglobin 7.1 g/dL (11.5-15.4)
[2021-10-13] MEDS: MetroNIDAZOLE 500 MG/100 ML 500 MG/100 ML BAG IVPB SCH ×4 (00:20→23:00)
[2021-10-13] MEDS: Artificial Tears SOLN 15 ML BOTTLE BOTH EYES SCH ×7 (00:20→23:00)
[2021-10-13] MEDS: Insulin LISPRO 300 UNITS/3 ML VIAL SUBQ SCH ×7 (00:32→23:01)
[2021-10-13 00:47] LABS: VBG Ionized Calcium 1.02 mmol/L (1.15-1.35)
[2021-10-13 00:47] LABS: Hematocrit 22.1 % (35.3-44.9)
[2021-10-13 01:05] LABS: Calcium 7.1 mg/dL (8.6-10.3); Magnesium 1.8 mg/dL (1.6-2.6); Phosphorous 3.6 mg/dL (2.7-4.5); Potassium 3.7 mEq/L (3.5-5.1)
[2021-10-13] MEDS: Valproic Acid INJ 250 MG in 0.9 % Sodium Chloride 100 ML IVPB SCH ×3 (01:10→23:00)
[2021-10-13] MEDS: Calcium Gluconate 1gm/50mL 1 GM/50 ML BAG IVPB SCH ×2 (01:28→02:06)
[2021-10-13] MEDS: FentaNYL (PF) 1,000 MCG/100 ML IV.SOLN IVC SCH (04:39)
[2021-10-13 05:08] LABS: ABG Base Excess 1 mEq/L (-2 to 3); ABG HCO3 26 mEq/L (21-27); ABG Oxygen Saturation 94 % (95-98); ABG PCO2 46 mmHg (35-45); ABG PH 7.36 pH Units (7.32-7.45); ABG PO2 73 mmHg (85-104); ABG TCO2 28 mEq/L (20-26); Blood Gas VT 420 cc
[2021-10-13] MEDS: Pantoprazole 40 MG VIAL IVP SCH (05:27)
[2021-10-13] MEDS: Budesonide/Formoterol 80/4.5 1 PUFF INH IH SCH ×2 (08:13→20:13)
[2021-10-13] MEDS: Nicotine 21 MG PATCH.TD24 TD SCH (08:33)
[2021-10-13] MEDS: Lactobacillus 1 EACH CAP.SPRINK PO SCH ×2 (08:33→20:05)
[2021-10-13] MEDS: Aspirin 81 MG TAB.CHEW PO SCH (08:33)
[2021-10-13] MEDS: Chlorhexidine Rinse 15 ML MOUTHWASH MM SCH ×2 (08:34→20:05)
[2021-10-13] MEDS: carvediloL 6.25 MG TABLET PO SCH ×2 (08:52→17:06)
[2021-10-13 09:02] LABS: Hematocrit 21.9 % (35.3-44.9); Hemoglobin 6.7 g/dL (11.5-15.4); Mean Corpuscular HGB Conc 30.6 g/dL (31.6-35.5); Mean Corpuscular Hemoglobin 28.2 pg (28.0-33.3); Platelet Count 130 K/mcL (140-400); Red Blood Count 2.38 M/mcL (3.82-4.97); Red Cell Distribution Width 17.6 % (11.5-14.5)
[2021-10-13 09:11] LABS: White Blood Count 9.2 K/mcL (4.3-11.1)
[2021-10-13 09:15] LABS: Albumin 2.5 g/dL (3.5-5.7); Bilirubin,Total 0.4 mg/dL (0.3-1.0); Calcium 7.8 mg/dL (8.6-10.3); Globulin 2.4 g/dL (2.4-3.5); Magnesium 1.9 mg/dL (1.6-2.6); Phosphorous 3.4 mg/dL (2.7-4.5); Potassium 3.5 mEq/L (3.5-5.1); Total Protein 4.9 g/dL (6.4-8.9)
[2021-10-13 11:56] LABS: Eosinophils # 0.1 K/mcL (0.0-0.6); Lymphocytes # 1.2 K/mcL (0.6-4.6); Monocytes # 0.3 K/mcL (0.0-1.3); Neutrophils # 7.6 K/mcL (1.6-8.9)
[2021-10-13 11:57] LABS: Anisocytosis 1+ (Not Present); Hypochromasia Present (Not Present); Platelet Estimate Decreased (Normal); Polychromasia 1+ (Not Present); Toxic Granulation Present (Not Present)
[2021-10-13] MEDS: Multivitamin Liquid 15 ML UDC GTUBE SCH (12:08)
[2021-10-13] MEDS: Norepinephrine 4 MG/254 ML IV.SOLN IVC SCH (16:45)
[2021-10-13] MEDS: Fat Emulsion 250 ML IVPB SCH (16:58)
[2021-10-13] MEDS ORDERED: Clinimix E 5%-15% SOLUTION 2,000 ML with MVI, adult with vitamin K 10 ML IVC SCH (17:00)
[2021-10-13] MEDS: Midazolam HCl 50 MG/100 ML IV.SOLN IVC SCH (17:05)
[2021-10-14] MEDS: Midazolam HCl 50 MG/100 ML IV.SOLN IVC SCH ×2 (01:01→14:43)
[2021-10-14] MEDS: Insulin LISPRO 300 UNITS/3 ML VIAL SUBQ SCH ×6 (03:08→23:13)
[2021-10-14] MEDS: Artificial Tears SOLN 15 ML BOTTLE BOTH EYES SCH ×6 (03:08→23:11)
[2021-10-14 03:11] LABS: Basophils % 0.1 %; Eosinophils # 0.2 K/mcL (0.0-0.6); Eosinophils % 2.7 %; Hematocrit 19.1 % (35.3-44.9); Hemoglobin 6.2 g/dL (11.5-15.4); Immature Granulocytes % 1.4 % (0-4); Lymphocytes % 11.5 %; Mean Corpuscular HGB Conc 32.5 g/dL (31.6-35.5); Mean Corpuscular Hemoglobin 29.7 pg (28.0-33.3); Mean Corpuscular Volume 91.4 fL (83.0-100.0); Monocytes # 0.3 K/mcL (0.0-1.3); Neutrophils # 6.8 K/mcL (1.6-8.9); Platelet Count 144 K/mcL (140-400); Red Blood Count 2.09 M/mcL (3.82-4.97); Red Cell Distribution Width 17.4 % (11.5-14.5); Segmented Neutrophils % 81.3 %; White Blood Count 8.4 K/mcL (4.3-11.1)
[2021-10-14 03:32] LABS: Albumin 2.3 g/dL (3.5-5.7); Albumin/Globulin Ratio 0.9 (1.1-2.2); Anisocytosis 1+ (Not Present); Bilirubin,Direct 0.1 mg/dL (0.0-0.2); Bilirubin,Indirect 0.2 mg/dL (0.0-1.0); Bilirubin,Total 0.3 mg/dL (0.3-1.0); Globulin 2.5 g/dL (2.4-3.5); Platelet Estimate Normal (Normal); Smudge Cells Present (Not Present); Total Protein 4.8 g/dL (6.4-8.9)
[2021-10-14 03:33] LABS: Albumin 2.3 g/dL (3.5-5.7); Albumin/Globulin Ratio 0.9 (1.1-2.2); Bilirubin,Total 0.4 mg/dL (0.3-1.0); Calcium 7.4 mg/dL (8.6-10.3); Globulin 2.5 g/dL (2.4-3.5); Phosphorous 3.2 mg/dL (2.7-4.5); Potassium 3.5 mEq/L (3.5-5.1); Total Protein 4.8 g/dL (6.4-8.9)
[2021-10-14] MEDS ORDERED: Potassium Chloride Elixir 20 MEQ/15 ML UDC GTUBE ONE (03:39)
[2021-10-14 04:08] LABS: ABG Base Excess -1 mEq/L (-2 to 3); ABG HCO3 24 mEq/L (21-27); ABG Oxygen Saturation 97 % (95-98); ABG PCO2 38 mmHg (35-45); ABG PH 7.42 pH Units (7.32-7.45); ABG PO2 85 mmHg (85-104); ABG TCO2 25 mEq/L (20-26); Blood Gas VT 420 cc
[2021-10-14] MEDS: Pantoprazole 40 MG VIAL IVP SCH (05:00)
[2021-10-14] MEDS: metroNIDAZOLE 500 MG TABLET PO SCH (07:16)
[2021-10-14] MEDS: Aspirin 81 MG TAB.CHEW PO SCH (07:45)
[2021-10-14] MEDS: MetroNIDAZOLE 500 MG/100 ML 500 MG/100 ML BAG IVPB SCH ×3 (07:45→23:13)
[2021-10-14] MEDS: Chlorhexidine Rinse 15 ML MOUTHWASH MM SCH ×2 (07:45→20:02)
[2021-10-14] MEDS: Lactobacillus 1 EACH CAP.SPRINK PO SCH ×2 (07:45→20:02)
[2021-10-14] MEDS: Nicotine 21 MG PATCH.TD24 TD SCH (07:46)
[2021-10-14] MEDS: carvediloL 6.25 MG TABLET PO SCH ×2 (07:46→18:16)
[2021-10-14] MEDS: Multivitamin Liquid 15 ML UDC GTUBE SCH (07:47)
[2021-10-14] MEDS: Budesonide/Formoterol 80/4.5 1 PUFF INH IH SCH ×2 (08:23→19:48)
[2021-10-14] MEDS ORDERED: Furosemide 20 MG/2 ML VIAL IVP ONE (09:26)
[2021-10-14] MEDS: Valproic Acid INJ 250 MG in 0.9 % Sodium Chloride 100 ML IVPB SCH ×2 (12:15→23:11)
[2021-10-14] MEDS ORDERED: Iron Sucrose Complex 200 MG in 0.9 % Sodium Chloride 100 ML IVPB ONE (16:20)
[2021-10-14] MEDS ORDERED: Clinimix E 5%-15% SOLUTION 2,000 ML with MVI, adult with vitamin K 10 ML IVC SCH (17:00)
[2021-10-14] MEDS: Fat Emulsion 250 ML IVPB SCH (18:15)
[2021-10-14] MEDS: Norepinephrine 4 MG/254 ML IV.SOLN IVC SCH (18:17)
[2021-10-14] MEDS: FentaNYL (PF) 1,000 MCG/100 ML IV.SOLN IVC SCH (20:03)
[2021-10-15] MEDS: Midazolam HCl 50 MG/100 ML IV.SOLN IVC SCH ×3 (00:02→23:03)
[2021-10-15] MEDS: Artificial Tears SOLN 15 ML BOTTLE BOTH EYES SCH ×5 (03:14→19:01)
[2021-10-15] MEDS: Insulin LISPRO 300 UNITS/3 ML VIAL SUBQ SCH ×6 (03:14→23:01)
[2021-10-15 03:27] LABS: Lymphocytes % 9.6 %
[2021-10-15 03:28] LABS: VBG Ionized Calcium 1.15 mmol/L (1.15-1.35)
[2021-10-15 03:29] LABS: Basophils % 0.2 %; Eosinophils # 0.2 K/mcL (0.0-0.6); Eosinophils % 2.7 %; Hematocrit 17.6 % (35.3-44.9); Lymphocytes # 0.8 K/mcL (0.6-4.6); Mean Corpuscular HGB Conc 30.7 g/dL (31.6-35.5); Mean Corpuscular Hemoglobin 28.3 pg (28.0-33.3); Mean Corpuscular Volume 92.1 fL (83.0-100.0); Mean Platelet Volume 11.5 fL (9.4-12.4); Monocytes # 0.3 K/mcL (0.0-1.3); Monocytes % 4.1 %; Neutrophils # 6.7 K/mcL (1.6-8.9); Nucleated Red Blood Cells 0.2 /100 WBC (0); Platelet Count 136 K/mcL (140-400); Red Blood Count 1.91 M/mcL (3.82-4.97); Red Cell Distribution Width 17.9 % (11.5-14.5); Segmented Neutrophils % 82.4 %; White Blood Count 8.1 K/mcL (4.3-11.1)
[2021-10-15 03:38] LABS: Hemoglobin 5.4 g/dL (11.5-15.4)
[2021-10-15 03:47] LABS: Albumin 2.2 g/dL (3.5-5.7); Albumin/Globulin Ratio 0.8 (1.1-2.2); Bilirubin,Total 0.6 mg/dL (0.3-1.0); Calcium 7.4 mg/dL (8.6-10.3); Globulin 2.7 g/dL (2.4-3.5); Magnesium 2.1 mg/dL (1.6-2.6); Phosphorous 2.9 mg/dL (2.7-4.5); Potassium 3.7 mEq/L (3.5-5.1); Total Protein 4.9 g/dL (6.4-8.9)
[2021-10-15 04:35] LABS: ABG Base Excess 0 mEq/L (-2 to 3); ABG HCO3 25 mEq/L (21-27); ABG Oxygen Saturation 96 % (95-98); ABG PCO2 41 mmHg (35-45); ABG PH 7.38 pH Units (7.32-7.45); ABG PO2 84 mmHg (85-104); ABG TCO2 26 mEq/L (20-26); Blood Gas VT 420 cc
[2021-10-15] MEDS: Pantoprazole 40 MG VIAL IVP SCH (05:08)
[2021-10-15] MEDS: MetroNIDAZOLE 500 MG/100 ML 500 MG/100 ML BAG IVPB SCH ×3 (07:45→23:00)
[2021-10-15] MEDS: carvediloL 6.25 MG TABLET PO SCH ×2 (07:54→16:46)
[2021-10-15] MEDS: Budesonide/Formoterol 80/4.5 1 PUFF INH IH SCH ×2 (08:02→22:06)
[2021-10-15] MEDS: Chlorhexidine Rinse 15 ML MOUTHWASH MM SCH ×2 (08:04→19:14)
[2021-10-15] MEDS: Multivitamin Liquid 15 ML UDC GTUBE SCH (08:04)
[2021-10-15] MEDS: Aspirin 81 MG TAB.CHEW PO SCH (08:04)
[2021-10-15] MEDS: Nicotine 21 MG PATCH.TD24 TD SCH (08:04)
[2021-10-15] MEDS: Lactobacillus 1 EACH CAP.SPRINK PO SCH ×2 (08:04→20:00)
[2021-10-15] MEDS ORDERED: 0.9 % Sodium Chloride 250 ML ONE (09:24)
[2021-10-15] MEDS: Valproic Acid INJ 250 MG in 0.9 % Sodium Chloride 100 ML IVPB SCH ×2 (12:35→23:01)
[2021-10-15] MEDS ORDERED: Furosemide 40 MG TABLET PO SCH (13:15)
[2021-10-15] MEDS: Furosemide 40 MG/4 ML VIAL IVP SCH (13:39)
[2021-10-15 14:10] LABS: Hematocrit 24.3 % (35.3-44.9)
[2021-10-15 14:15] LABS: Hemoglobin 7.4 g/dL (11.5-15.4)
[2021-10-15] MEDS ORDERED: *HR* FentaNYL (PF) 100 MCG/2 ML VIAL IVP ONE (15:18)
[2021-10-15] MEDS: Fat Emulsion 250 ML IVPB SCH (16:43)
[2021-10-15] MEDS: Norepinephrine 4 MG/254 ML IV.SOLN IVC SCH (16:44)
[2021-10-15] MEDS ORDERED: Clinimix E 5%-15% SOLUTION 2,000 ML with MVI, adult with vitamin K 10 ML IVC SCH (17:00)
[2021-10-15] MEDS: *HR* FentaNYL (PF) 100 MCG/2 ML VIAL IVP PRN (22:30)
[2021-10-16] MEDS: *HR* FentaNYL (PF) 100 MCG/2 ML VIAL IVP PRN ×2 (02:35→23:36)
[2021-10-16 03:10] LABS: Basophils % 0.3 %; Eosinophils # 0.2 K/mcL (0.0-0.6); Eosinophils % 2.4 %; Hematocrit 22.4 % (35.3-44.9); Hemoglobin 7.2 g/dL (11.5-15.4); Immature Granulocytes % 1.6 % (0-4); Lymphocytes # 0.6 K/mcL (0.6-4.6); Lymphocytes % 8.8 %; Mean Corpuscular HGB Conc 32.1 g/dL (31.6-35.5); Mean Corpuscular Hemoglobin 28.2 pg (28.0-33.3); Mean Corpuscular Volume 87.8 fL (83.0-100.0); Mean Platelet Volume 11.4 fL (9.4-12.4); Monocytes # 0.6 K/mcL (0.0-1.3); Monocytes % 8.8 %; Neutrophils # 5.2 K/mcL (1.6-8.9); Platelet Count 151 K/mcL (140-400); Red Blood Count 2.55 M/mcL (3.82-4.97); Red Cell Distribution Width 19.9 % (11.5-14.5); Segmented Neutrophils % 78.1 %; White Blood Count 6.7 K/mcL (4.3-11.1)
[2021-10-16 03:12] LABS: VBG Ionized Calcium 1.13 mmol/L (1.15-1.35)
[2021-10-16 03:49] LABS: Albumin 2.4 g/dL (3.5-5.7); Albumin/Globulin Ratio 0.8 (1.1-2.2); Calcium 7.7 mg/dL (8.6-10.3); Phosphorous 2.9 mg/dL (2.7-4.5); Potassium 3.8 mEq/L (3.5-5.1); Total Protein 5.4 g/dL (6.4-8.9)
[2021-10-16] MEDS: Insulin LISPRO 300 UNITS/3 ML VIAL SUBQ SCH ×5 (04:05→23:20)
[2021-10-16] MEDS: Pantoprazole 40 MG VIAL IVP SCH (05:29)
[2021-10-16] MEDS: Budesonide/Formoterol 80/4.5 1 PUFF INH IH SCH ×2 (07:42→20:50)
[2021-10-16] MEDS: carvediloL 6.25 MG TABLET PO SCH ×2 (08:00→19:53)
[2021-10-16] MEDS: MetroNIDAZOLE 500 MG/100 ML 500 MG/100 ML BAG IVPB SCH ×3 (08:45→23:09)
[2021-10-16] MEDS: Nicotine 21 MG PATCH.TD24 TD SCH (08:45)
[2021-10-16] MEDS: Furosemide 40 MG/4 ML VIAL IVP SCH (08:50)
[2021-10-16] MEDS: Aspirin 81 MG TAB.CHEW PO SCH (09:43)
[2021-10-16] MEDS: Multivitamin Liquid 15 ML UDC GTUBE SCH (09:45)
[2021-10-16] MEDS: Lactobacillus 1 EACH CAP.SPRINK PO SCH ×2 (09:45→20:44)
[2021-10-16] MEDS ORDERED: Insulin LISPRO 300 UNITS/3 ML VIAL SUBQ SCH (11:49)
[2021-10-16] MEDS: Valproic Acid INJ 250 MG in 0.9 % Sodium Chloride 100 ML IVPB SCH ×2 (13:02→23:26)
[2021-10-16] MEDS ORDERED: Clinimix E 5%-15% SOLUTION 2,000 ML with MVI, adult with vitamin K 10 ML IVC SCH (17:00)
[2021-10-16] MEDS: Fat Emulsion 250 ML IVPB SCH (17:44)
[2021-10-16] MEDS: *HR* Heparin 5,000 UNIT/ML VIAL SQ SCH (19:43)
[2021-10-16] MEDS: Norepinephrine 4 MG/254 ML IV.SOLN IVC SCH (19:46)
[2021-10-16] MEDS: Ipratropium/Albuterol Neb 3 ML IH PRN (20:47)
[2021-10-16] MEDS ORDERED: Acetylcysteine 10% 2 ML INHSOL IH SCH (21:15)
[2021-10-16] MEDS: Acetylcysteine 10% 2 ML INHSOL IH SCH (21:17)
[2021-10-17] MEDS: *HR* FentaNYL (PF) 100 MCG/2 ML VIAL IVP PRN ×2 (02:49→06:24)
[2021-10-17 03:51] LABS: Hematocrit 22.2 % (35.3-44.9); Hemoglobin 7.4 g/dL (11.5-15.4); Mean Corpuscular HGB Conc 33.3 g/dL (31.6-35.5); Mean Corpuscular Hemoglobin 28.4 pg (28.0-33.3); Mean Corpuscular Volume 85.1 fL (83.0-100.0); Mean Platelet Volume 11.5 fL (9.4-12.4); Platelet Count 171 K/mcL (140-400); Red Blood Count 2.61 M/mcL (3.82-4.97); Red Cell Distribution Width 19.7 % (11.5-14.5); White Blood Count 6.4 K/mcL (4.3-11.1)
[2021-10-17 03:58] LABS: VBG Ionized Calcium 1.14 mmol/L (1.15-1.35)
[2021-10-17 04:10] LABS: Alanine Aminotransferase 9 Units/L (7-52); Albumin 2.3 g/dL (3.5-5.7); Albumin/Globulin Ratio 0.8 (1.1-2.2); Alkaline Phosphatase 92 Units/L (34-104); Aspartate Amino Transferase 41 Units/L (13-39); BUN/Creatinine Ratio 44 (6-26); Bilirubin,Total 1.7 mg/dL (0.3-1.0); Blood Urea Nitrogen 43 mg/dL (8-23); Calcium 7.9 mg/dL (8.6-10.3); Carbon Dioxide 25 mEq/L (23-29); Chloride 101 mEq/L (98-107); Globulin 2.9 g/dL (2.4-3.5); Glucose 358 mg/dL (70-105); Magnesium 1.8 mg/dL (1.6-2.6); Osmolality,Calculated 301 (280-300); Phosphorous 2.5 mg/dL (2.7-4.5); Potassium 3.3 mEq/L (3.5-5.1); Sodium 133 mEq/L (136-145); Total Protein 5.2 g/dL (6.4-8.9); eGFR For African Americans > 60 (> 60); eGFR For Non-African Americans 56 (> 60)
[2021-10-17] MEDS: Acetylcysteine 10% 2 ML INHSOL IH SCH ×4 (04:23→20:08)
[2021-10-17] MEDS: Ipratropium/Albuterol Neb 3 ML IH PRN ×4 (04:23→20:08)
[2021-10-17] MEDS ORDERED: Calcium Gluconate 1gm/50mL 1 GM/50 ML BAG IVPB PRN (04:24)
[2021-10-17] MEDS: Insulin LISPRO 300 UNITS/3 ML VIAL SUBQ SCH ×3 (04:51→20:22)
[2021-10-17] MEDS: *HR* Heparin 5,000 UNIT/ML VIAL SQ SCH ×2 (05:02→17:52)
[2021-10-17] MEDS: Pantoprazole 40 MG VIAL IVP SCH (05:22)
[2021-10-17] MEDS: MetroNIDAZOLE 500 MG/100 ML 500 MG/100 ML BAG IVPB SCH ×2 (07:40→17:52)
[2021-10-17] MEDS: Multivitamin Liquid 15 ML UDC GTUBE SCH (07:40)
[2021-10-17] MEDS: Furosemide 40 MG/4 ML VIAL IVP SCH (07:40)
[2021-10-17] MEDS: Nicotine 21 MG PATCH.TD24 TD SCH (07:40)
[2021-10-17] MEDS: carvediloL 6.25 MG TABLET PO SCH (07:41)
[2021-10-17] MEDS: Lactobacillus 1 EACH CAP.SPRINK PO SCH ×2 (07:41→20:28)
[2021-10-17] MEDS: Aspirin 81 MG TAB.CHEW PO SCH (07:41)
[2021-10-17] MEDS ORDERED: Potassium Phosphate 44 MEQ in 0.9 % Sodium Chloride 250 ML IVPB ONE (07:45)
[2021-10-17] MEDS: Budesonide/Formoterol 80/4.5 1 PUFF INH IH SCH ×2 (10:58→20:09)
[2021-10-17] MEDS ORDERED: Insulin LISPRO 300 UNITS/3 ML VIAL SUBQ SCH (12:12)
[2021-10-17] MEDS ORDERED: Insulin DETEMIR 100 UNIT/ML X5UNITS SUBQ ONE (12:45)
[2021-10-17] MEDS: Valproic Acid INJ 250 MG in 0.9 % Sodium Chloride 100 ML IVPB SCH (12:48)
[2021-10-17 15:46] LABS: BUN/Creatinine Ratio 43 (6-26); Blood Urea Nitrogen 39 mg/dL (8-23); Calcium 7.8 mg/dL (8.6-10.3); Carbon Dioxide 28 mEq/L (23-29); Chloride 101 mEq/L (98-107); Glucose 270 mg/dL (70-105); Magnesium 1.9 mg/dL (1.6-2.6); Osmolality,Calculated 299 (280-300); Potassium 3.6 mEq/L (3.5-5.1); Sodium 135 mEq/L (136-145); eGFR For African Americans > 60 (> 60); eGFR For Non-African Americans > 60 (> 60)
[2021-10-17] MEDS ORDERED: Clinimix E 5%-15% SOLUTION 2,000 ML with MVI, adult with vitamin K 10 ML IVC SCH ×2 (17:00→17:22)
[2021-10-17] MEDS ORDERED: Naloxone 0.4 MG/ML INJ IVP PRN (17:22)
[2021-10-17] MEDS ORDERED: Acetaminophen 325 MG TABLET PO PRN (17:22)
[2021-10-17] MEDS ORDERED: D10% in Water 500 ML IVC PRN (17:22)
[2021-10-17] MEDS: Insulin DETEMIR 100 UNIT/ML X5UNITS SUBQ SCH (20:33)
[2021-10-17] MEDS ORDERED: Insulin DETEMIR 100 UNIT/ML X5UNITS SUBQ SCH (21:00)
[2021-10-18] MEDS ORDERED: MetroNIDAZOLE 500 MG/100 ML 500 MG/100 ML BAG IVPB SCH
[2021-10-18] MEDS: Insulin LISPRO 300 UNITS/3 ML VIAL SUBQ SCH ×6 (00:45→20:55)
[2021-10-18] MEDS: Valproic Acid INJ 250 MG in 0.9 % Sodium Chloride 100 ML IVPB SCH ×2 (00:49→13:19)
[2021-10-18] MEDS: MetroNIDAZOLE 500 MG/100 ML 500 MG/100 ML BAG IVPB SCH ×3 (00:57→16:29)
[2021-10-18] MEDS: Ipratropium/Albuterol Neb 3 ML IH PRN ×5 (04:02→20:15)
[2021-10-18] MEDS: Acetylcysteine 10% 2 ML INHSOL IH SCH ×4 (04:04→20:15)
[2021-10-18] MEDS: *HR* Heparin 5,000 UNIT/ML VIAL SQ SCH ×2 (05:36→17:27)
[2021-10-18] MEDS: Pantoprazole 40 MG VIAL IVP SCH (05:36)
[2021-10-18 07:00] LABS: Basophils % 0.1 %; Eosinophils # 0.2 K/mcL (0.0-0.6); Eosinophils % 1.8 %; Hematocrit 21.8 % (35.3-44.9); Hemoglobin 7.4 g/dL (11.5-15.4); Immature Granulocytes % 1.6 % (0-4); Lymphocytes # 1.1 K/mcL (0.6-4.6); Lymphocytes % 11.6 %; Mean Corpuscular HGB Conc 33.9 g/dL (31.6-35.5); Mean Corpuscular Hemoglobin 28.2 pg (28.0-33.3); Mean Corpuscular Volume 83.2 fL (83.0-100.0); Monocytes % 10.3 %; Platelet Count 177 K/mcL (140-400); Red Blood Count 2.62 M/mcL (3.82-4.97); Red Cell Distribution Width 19.8 % (11.5-14.5); Segmented Neutrophils % 74.6 %; White Blood Count 9.4 K/mcL (4.3-11.1)
[2021-10-18] MEDS: Budesonide/Formoterol 80/4.5 1 PUFF INH IH SCH ×2 (07:15→20:16)
[2021-10-18 07:21] LABS: Alanine Aminotransferase 7 Units/L (7-52); Albumin 2.2 g/dL (3.5-5.7); Albumin/Globulin Ratio 0.7 (1.1-2.2); Alkaline Phosphatase 118 Units/L (34-104); Aspartate Amino Transferase 33 Units/L (13-39); BUN/Creatinine Ratio 46 (6-26); Bilirubin,Total 1.5 mg/dL (0.3-1.0); Blood Urea Nitrogen 38 mg/dL (8-23); Calcium 7.7 mg/dL (8.6-10.3); Carbon Dioxide 25 mEq/L (23-29); Chloride 103 mEq/L (98-107); Glucose 141 mg/dL (70-105); Magnesium 1.8 mg/dL (1.6-2.6); Osmolality,Calculated 289 (280-300); Phosphorous 3.9 mg/dL (2.7-4.5); Potassium 3.5 mEq/L (3.5-5.1); Sodium 134 mEq/L (136-145); Total Protein 5.2 g/dL (6.4-8.9); eGFR For African Americans > 60 (> 60); eGFR For Non-African Americans > 60 (> 60)
[2021-10-18] MEDS ORDERED: carvediloL 6.25 MG TABLET PO SCH (08:00)
[2021-10-18] MEDS ORDERED: Multivitamin Liquid 15 ML UDC GTUBE SCH (09:00)
[2021-10-18] MEDS ORDERED: Aspirin 81 MG TAB.CHEW PO SCH (09:00)
[2021-10-18] MEDS: Nicotine 21 MG PATCH.TD24 TD SCH (09:18)
[2021-10-18] MEDS: Furosemide 20 MG/2 ML VIAL IVP SCH (09:19)
[2021-10-18] MEDS: Lactobacillus 1 EACH CAP.SPRINK PO SCH (09:38)
[2021-10-18] MEDS ORDERED: Acetaminophen IV 500 MG/50 ML BAG IVPB ONE (14:00)
[2021-10-18] MEDS ORDERED: Fat Emulsion 250 ML IVPB SCH (17:00)
[2021-10-18] MEDS ORDERED: Clinimix E 5%-15% SOLUTION 2,000 ML with MVI, adult with vitamin K 10 ML, ZN/CU/MN/SE... IVC SCH (17:00)
[2021-10-18] MEDS: *HR* Metoprolol 5 MG/5 ML VIAL IVP SCH (17:27)
[2021-10-18] MEDS: Insulin DETEMIR 100 UNIT/ML X5UNITS SUBQ SCH (20:56)
[2021-10-19] MEDS: Insulin LISPRO 300 UNITS/3 ML VIAL SUBQ SCH ×6 (00:39→20:57)
[2021-10-19] MEDS: *HR* Metoprolol 5 MG/5 ML VIAL IVP SCH ×5 (00:40→18:51)
[2021-10-19] MEDS: MetroNIDAZOLE 500 MG/100 ML 500 MG/100 ML BAG IVPB SCH ×3 (00:42→16:48)
[2021-10-19] MEDS: Valproic Acid INJ 250 MG in 0.9 % Sodium Chloride 100 ML IVPB SCH ×2 (01:45→13:52)
[2021-10-19 02:38] LABS: Basophils % 0.2 %; Eosinophils # 0.3 K/mcL (0.0-0.6); Eosinophils % 2.7 %; Hematocrit 22.8 % (35.3-44.9); Hemoglobin 7.7 g/dL (11.5-15.4); Immature Granulocytes % 1.5 % (0-4); Lymphocytes # 1.3 K/mcL (0.6-4.6); Lymphocytes % 10.9 %; Mean Corpuscular HGB Conc 33.8 g/dL (31.6-35.5); Mean Corpuscular Hemoglobin 29.1 pg (28.0-33.3); Mean Platelet Volume 11.3 fL (9.4-12.4); Monocytes # 0.8 K/mcL (0.0-1.3); Monocytes % 7.2 %; Platelet Count 215 K/mcL (140-400); Red Blood Count 2.65 M/mcL (3.82-4.97); Red Cell Distribution Width 20.1 % (11.5-14.5); Segmented Neutrophils % 77.5 %; White Blood Count 11.7 K/mcL (4.3-11.1)
[2021-10-19 02:44] LABS: Neutrophils # 9.1 K/mcL (1.6-8.9)
[2021-10-19 03:00] LABS: Alanine Aminotransferase 7 Units/L (7-52); Albumin 2.3 g/dL (3.5-5.7); Albumin/Globulin Ratio 0.7 (1.1-2.2); Alkaline Phosphatase 147 Units/L (34-104); Aspartate Amino Transferase 28 Units/L (13-39); BUN/Creatinine Ratio 44 (6-26); Bilirubin,Total 1.4 mg/dL (0.3-1.0); Blood Urea Nitrogen 38 mg/dL (8-23); Calcium 7.4 mg/dL (8.6-10.3); Carbon Dioxide 25 mEq/L (23-29); Chloride 103 mEq/L (98-107); Globulin 3.2 g/dL (2.4-3.5); Glucose 107 mg/dL (70-105); Magnesium 1.8 mg/dL (1.6-2.6); Osmolality,Calculated 288 (280-300); Phosphorous 3.7 mg/dL (2.7-4.5); Potassium 3.3 mEq/L (3.5-5.1); Sodium 134 mEq/L (136-145); Total Protein 5.5 g/dL (6.4-8.9); eGFR For African Americans > 60 (> 60); eGFR For Non-African Americans > 60 (> 60)
[2021-10-19] MEDS: Ipratropium/Albuterol Neb 3 ML IH PRN ×4 (03:35→20:26)
[2021-10-19] MEDS: Acetylcysteine 10% 2 ML INHSOL IH SCH ×4 (03:35→20:27)
[2021-10-19] MEDS: *HR* Heparin 5,000 UNIT/ML VIAL SQ SCH ×2 (05:38→18:51)
[2021-10-19] MEDS: Pantoprazole 40 MG VIAL IVP SCH (05:53)
[2021-10-19] MEDS: Budesonide/Formoterol 80/4.5 1 PUFF INH IH SCH ×2 (07:31→20:27)
[2021-10-19] MEDS: Nicotine 21 MG PATCH.TD24 TD SCH (08:24)
[2021-10-19] MEDS: Furosemide 20 MG/2 ML VIAL IVP SCH (08:24)
[2021-10-19] MEDS ORDERED: Clinimix E 5%-15% SOLUTION 2,000 ML with MVI, adult with vitamin K 10 ML, ZN/CU/MN/SE... IVC SCH (17:00)
[2021-10-19] MEDS: Insulin DETEMIR 100 UNIT/ML X5UNITS SUBQ SCH (20:57)
[2021-10-20] MEDS: MetroNIDAZOLE 500 MG/100 ML 500 MG/100 ML BAG IVPB SCH ×4 (01:39→22:57)
[2021-10-20] MEDS: Insulin LISPRO 300 UNITS/3 ML VIAL SUBQ SCH ×8 (01:40→23:10)
[2021-10-20] MEDS: *HR* Metoprolol 5 MG/5 ML VIAL IVP SCH ×6 (01:40→22:59)
[2021-10-20] MEDS ORDERED: *HR* Metoprolol 5 MG/5 ML VIAL IVP ONE ×2 (02:33→07:16)
[2021-10-20 03:00] LABS: Basophils % 0.3 %; Eosinophils # 0.4 K/mcL (0.0-0.6); Eosinophils % 2.9 %; Hematocrit 25.6 % (35.3-44.9); Hemoglobin 8.1 g/dL (11.5-15.4); Immature Granulocytes % 1.3 % (0-4); Lymphocytes # 1.2 K/mcL (0.6-4.6); Lymphocytes % 9.8 %; Mean Corpuscular HGB Conc 31.6 g/dL (31.6-35.5); Mean Corpuscular Hemoglobin 27.7 pg (28.0-33.3); Mean Corpuscular Volume 87.7 fL (83.0-100.0); Monocytes # 0.7 K/mcL (0.0-1.3); Monocytes % 6.1 %; Neutrophils # 9.6 K/mcL (1.6-8.9); Platelet Count 214 K/mcL (140-400); Red Blood Count 2.92 M/mcL (3.82-4.97); Segmented Neutrophils % 79.6 %
[2021-10-20 03:42] LABS: Alanine Aminotransferase 5 Units/L (7-52); Albumin 2.4 g/dL (3.5-5.7); Albumin/Globulin Ratio 0.7 (1.1-2.2); Alkaline Phosphatase 141 Units/L (34-104); Aspartate Amino Transferase 28 Units/L (13-39); BUN/Creatinine Ratio 48 (6-26); Blood Urea Nitrogen 39 mg/dL (8-23); Calcium 7.4 mg/dL (8.6-10.3); Carbon Dioxide 22 mEq/L (23-29); Chloride 104 mEq/L (98-107); Globulin 3.4 g/dL (2.4-3.5); Glucose 167 mg/dL (70-105); Magnesium 1.9 mg/dL (1.6-2.6); Osmolality,Calculated 289 (280-300); Potassium 3.8 mEq/L (3.5-5.1); Sodium 133 mEq/L (136-145); Total Protein 5.8 g/dL (6.4-8.9); eGFR For African Americans > 60 (> 60); eGFR For Non-African Americans > 60 (> 60)
[2021-10-20] MEDS ORDERED: *HR* Heparin 5,000 UNIT/ML VIAL IVP PRN ×2 (03:44)
[2021-10-20] MEDS ORDERED: Heparin 25,000UNIT/250ML 1/2NS 25,000 UNIT/250 ML IV.SOLN IVC SCH (03:45)
[2021-10-20] MEDS: Valproic Acid INJ 250 MG in 0.9 % Sodium Chloride 100 ML IVPB SCH ×3 (04:23→23:07)
[2021-10-20 04:25] LABS: ABG Base Excess 1 mEq/L (-2 to 3); ABG HCO3 26 mEq/L (21-27); ABG Oxygen Saturation 98 % (95-98); ABG PCO2 40 mmHg (35-45); ABG PH 7.42 pH Units (7.32-7.45); ABG PO2 102 mmHg (85-104); ABG TCO2 27 mEq/L (20-26)
[2021-10-20] MEDS: Ipratropium/Albuterol Neb 3 ML IH PRN (04:35)
[2021-10-20 05:11] LABS: Heparin anti-factor XA UFH < 0.04 IU/mL (0.30-0.70); INR 1.3; Prothrombin Time 14.1 Seconds (9.4-12.1)
[2021-10-20] MEDS: Furosemide 20 MG/2 ML VIAL IVP SCH (05:41)
[2021-10-20] MEDS: Pantoprazole 40 MG VIAL IVP SCH (05:52)
[2021-10-20 07:26] LABS: ABG Base Excess -2 mEq/L (-2 to 3); ABG HCO3 26 mEq/L (21-27); ABG Oxygen Saturation 86 % (95-98); ABG PCO2 61 mmHg (35-45); ABG PH 7.24 pH Units (7.32-7.45); ABG PO2 61 mmHg (85-104); ABG TCO2 28 mEq/L (20-26)
[2021-10-20] MEDS ORDERED: FentaNYL (PF) 1,000 MCG/100 ML IV.SOLN ONE (07:41)
[2021-10-20] MEDS ORDERED: Norepinephrine 4 MG/254 ML IV.SOLN IVC ONE (07:44)
[2021-10-20] MEDS ORDERED: Dexmedetomidine HCl 400 MCG/100 ML MLS IVC ONE (07:52)
[2021-10-20] MEDS ORDERED: Artificial Tears SOLN 15 ML BOTTLE BOTH EYES PRN ×2 (07:56→09:45)
[2021-10-20] MEDS ORDERED: Norepinephrine 4 MG/254 ML IV.SOLN IVC SCH (08:00)
[2021-10-20] MEDS ORDERED: Artificial Tears SOLN 15 ML BOTTLE BOTH EYES SCH (08:00)
[2021-10-20] MEDS ORDERED: FentaNYL (PF) 1,000 MCG/100 ML IV.SOLN IVC SCH (08:00)
[2021-10-20] MEDS ORDERED: Dexmedetomidine HCl 400 MCG/100 ML MLS IVC SCH (08:00)
[2021-10-20] MEDS: Budesonide/Formoterol 80/4.5 1 PUFF INH IH SCH ×3 (08:19→20:44)
[2021-10-20] MEDS: Nicotine 21 MG PATCH.TD24 TD SCH (08:57)
[2021-10-20] MEDS ORDERED: Chlorhexidine Rinse 15 ML MOUTHWASH MM SCH (09:00)
[2021-10-20 09:41] LABS: ABG Base Excess -1 mEq/L (-2 to 3); ABG HCO3 23 mEq/L (21-27); ABG Oxygen Saturation 97 % (95-98); ABG PCO2 34 mmHg (35-45); ABG PH 7.44 pH Units (7.32-7.45); ABG PO2 86 mmHg (85-104); ABG TCO2 24 mEq/L (20-26); Blood Gas Modality ASSIST CONTROL; Blood Gas VT 450 cc
[2021-10-20] MEDS ORDERED: Naloxone 0.4 MG/ML INJ IVP PRN (09:45)
[2021-10-20] MEDS ORDERED: D10% in Water 500 ML IVC PRN (09:45)
[2021-10-20] MEDS ORDERED: Clinimix E 5%-15% SOLUTION 2,000 ML with MVI, adult with vitamin K 10 ML, ZN/CU/MN/SE... IVC SCH ×2 (09:45→17:00)
[2021-10-20] MEDS ORDERED: Ipratropium/Albuterol Neb 3 ML IH PRN (09:45)
[2021-10-20] MEDS ORDERED: *HR* Etomidate 20 MG/10 ML AMPUL IVP ONE (10:04)
[2021-10-20] MEDS ORDERED: *HR* Midazolam HCl 2 MG/2 ML VIAL ONE (10:04)
[2021-10-20] MEDS: Norepinephrine 4 MG/254 ML IV.SOLN IVC SCH ×2 (11:04→19:02)
[2021-10-20] MEDS: FentaNYL (PF) 1,000 MCG/100 ML IV.SOLN IVC SCH ×3 (11:05→22:58)
[2021-10-20] MEDS: Dexmedetomidine HCl 400 MCG/100 ML MLS IVC SCH ×4 (11:07→22:57)
[2021-10-20 11:28] LABS: Adenovirus Not Detected (Not Detect); Bordetella Pertussis Not Detected (Not Detect); Chlamydophila pneumoniae Not Detected (Not Detect); Coronavirus 229E Not Detected (Not Detect); Coronavirus HKU1 Not Detected (Not Detect); Coronavirus NL63 Not Detected (Not Detect); Coronavirus OC43 Not Detected (Not Detect); Human Metapneumovirus Not Detected (Not Detect); Human Rhinovirus/Enterovirus Not Detected (Not Detect); Influenza A Subtype 2009 H1 Not Detected (Not Detect); Influenza B Not Detected (Not Detect); Mycoplasma pneumoniae Not Detected (Not Detect); Parainfluenza Virus 1 Not Detected (Not Detect); Parainfluenza Virus 2 Not Detected (Not Detect); Parainfluenza Virus 3 Not Detected (Not Detect); Parainfluenza Virus 4 Not Detected (Not Detect); Respiratory Syncytial Virus Not Detected (Not Detect); SARS-CoV-2 Not Detected (Not Detect)
[2021-10-20] MEDS: Artificial Tears SOLN 15 ML BOTTLE BOTH EYES SCH ×4 (12:36→22:58)
[2021-10-20 13:53] LABS: Source of Body Fluid LEFT LOWER LOBE LUNG
[2021-10-20 15:17] LABS: Bacteria,Urine Few per hpf (None-Few); Bilirubin,Urine Negative (Negative); Blood,Urine Small (Negative); Budding Yeast,Urine Many per hpf (None Seen); Clarity,Urine Clear (Clear); Color,Urine Yellow (Yellow); Glucose,Urine (UA) Normal (Normal); Ketones,Urine Negative (Negative); Leukocyte Esterase,Urine Moderate (Negative); Nitrite,Urine Negative (Negative); PH,Urine 5.5 pH Units (5.0-8.0); Protein,Urine Trace mg/dL (Neg-Trace); RBC,Urine 15-30 per hpf (0-3); Specific Gravity,Urine 1.018 (1.010-1.025); Squamous Epithelial Cell,Urine Few per hpf (None-Few); Urobilinogen,Urine Normal (Normal); WBC,Urine 30-50 per hpf (0-3)
[2021-10-20] MEDS ORDERED: *HR* Dextrose 50 % in Water (Syg) 50 ML SYRINGE ONE (16:50)
[2021-10-20] MEDS ORDERED: carvediloL 6.25 MG TABLET PO SCH (17:00)
[2021-10-20] MEDS ORDERED: Fat Emulsion 250 ML IVPB SCH ×3 (17:00)
[2021-10-20 18:02] LABS: Appearance of Body Fluid Cloudy (Clear); Volume of Body Fluid 16 mL
[2021-10-20] MEDS: Chlorhexidine Rinse 15 ML MOUTHWASH MM SCH (20:11)
[2021-10-20] MEDS: Insulin DETEMIR 100 UNIT/ML X5UNITS SUBQ SCH (20:42)
[2021-10-20] MEDS ORDERED: Lactobacillus 1 EACH CAP.SPRINK PO SCH (21:00)
[2021-10-21 03:21] LABS: Basophils % 0.3 %; Hemoglobin 7.8 g/dL (11.5-15.4)
[2021-10-21 03:22] LABS: Basophils # 0.1 K/mcL (0.0-0.2); Eosinophils # 0.9 K/mcL (0.0-0.6); Eosinophils % 3.4 %; Hematocrit 24.5 % (35.3-44.9); Lymphocytes # 1.5 K/mcL (0.6-4.6); Lymphocytes % 5.7 %; Mean Corpuscular HGB Conc 31.8 g/dL (31.6-35.5); Mean Corpuscular Hemoglobin 28.1 pg (28.0-33.3); Mean Corpuscular Volume 88.1 fL (83.0-100.0); Mean Platelet Volume 10.9 fL (9.4-12.4); Monocytes # 1.3 K/mcL (0.0-1.3); Monocytes % 4.9 %; Neutrophils # 22.9 K/mcL (1.6-8.9); Nucleated Red Blood Cells 0.1 /100 WBC (0); Platelet Count 249 K/mcL (140-400); Red Blood Count 2.78 M/mcL (3.82-4.97); Segmented Neutrophils % 84.7 %
[2021-10-21 03:40] LABS: Alanine Aminotransferase 4 Units/L (7-52); Albumin 2.2 g/dL (3.5-5.7); Albumin/Globulin Ratio 0.6 (1.1-2.2); Alkaline Phosphatase 116 Units/L (34-104); Aspartate Amino Transferase 24 Units/L (13-39); BUN/Creatinine Ratio 43 (6-26); Bilirubin,Total 1.3 mg/dL (0.3-1.0); Blood Urea Nitrogen 36 mg/dL (8-23); Calcium 7.3 mg/dL (8.6-10.3); Carbon Dioxide 24 mEq/L (23-29); Chloride 104 mEq/L (98-107); Globulin 3.4 g/dL (2.4-3.5); Glucose 73 mg/dL (70-105); Magnesium 1.8 mg/dL (1.6-2.6); Osmolality,Calculated 283 (280-300); Phosphorous 4.4 mg/dL (2.7-4.5); Potassium 3.8 mEq/L (3.5-5.1); Sodium 133 mEq/L (136-145); Total Protein 5.6 g/dL (6.4-8.9); eGFR For African Americans > 60 (> 60); eGFR For Non-African Americans > 60 (> 60)
[2021-10-21 04:11] LABS: Anisocytosis 1+ (Not Present); Hypochromasia Present (Not Present); Platelet Estimate Normal (Normal); Toxic Granulation Present (Not Present)
[2021-10-21] MEDS: Dexmedetomidine HCl 400 MCG/100 ML MLS IVC SCH ×3 (04:11→23:12)
[2021-10-21] MEDS: Norepinephrine 4 MG/254 ML IV.SOLN IVC SCH ×3 (04:12→21:30)
[2021-10-21] MEDS: Insulin LISPRO 300 UNITS/3 ML VIAL SUBQ SCH ×5 (04:13→20:03)
[2021-10-21] MEDS: Artificial Tears SOLN 15 ML BOTTLE BOTH EYES SCH ×5 (04:13→20:03)
[2021-10-21] MEDS: Pantoprazole 40 MG VIAL IVP SCH (05:27)
[2021-10-21] MEDS: *HR* Metoprolol 5 MG/5 ML VIAL IVP SCH ×3 (05:27→16:47)
[2021-10-21 05:56] LABS: ABG Base Excess -2 mEq/L (-2 to 3); ABG HCO3 23 mEq/L (21-27); ABG Oxygen Saturation 94 % (95-98); ABG PCO2 39 mmHg (35-45); ABG PH 7.39 pH Units (7.32-7.45); ABG PO2 73 mmHg (85-104); ABG TCO2 24 mEq/L (20-26); Blood Gas VT 450 cc
[2021-10-21] MEDS: Budesonide/Formoterol 80/4.5 1 PUFF INH IH SCH ×2 (08:35→20:52)
[2021-10-21] MEDS: MetroNIDAZOLE 500 MG/100 ML 500 MG/100 ML BAG IVPB SCH ×2 (08:54→16:42)
[2021-10-21] MEDS: Chlorhexidine Rinse 15 ML MOUTHWASH MM SCH ×2 (08:55→20:03)
[2021-10-21] MEDS: Furosemide 20 MG/2 ML VIAL IVP SCH (08:56)
[2021-10-21] MEDS: Nicotine 21 MG PATCH.TD24 TD SCH (08:56)
[2021-10-21] MEDS ORDERED: Multivitamin Liquid 15 ML UDC GTUBE SCH (09:00)
[2021-10-21] MEDS ORDERED: Aspirin 81 MG TAB.CHEW PO SCH (09:00)
[2021-10-21] MEDS: FentaNYL (PF) 1,000 MCG/100 ML IV.SOLN IVC SCH ×2 (09:35→17:38)
[2021-10-21] MEDS ORDERED: 0.9 % Sodium Chloride 250 ML ONE (11:19)
[2021-10-21] MEDS: Valproic Acid INJ 250 MG in 0.9 % Sodium Chloride 100 ML IVPB SCH (11:25)
[2021-10-21] MEDS: Vancomycin 1,250 MG/262.5 ML IV.SOLN IVPB SCH (12:21)
[2021-10-21] MEDS ORDERED: Clinimix E 5%-15% SOLUTION 2,000 ML with MVI, adult with vitamin K 10 ML, ZN/CU/MN/SE... IVC SCH (17:00)
[2021-10-21] MEDS: Insulin DETEMIR 100 UNIT/ML X5UNITS SUBQ SCH (20:05)
[2021-10-21 23:29] LABS: VBG Ionized Calcium 1.15 mmol/L (1.15-1.35)
[2021-10-21 23:39] LABS: BUN/Creatinine Ratio 42 (6-26); Blood Urea Nitrogen 36 mg/dL (8-23); Calcium 7.1 mg/dL (8.6-10.3); Carbon Dioxide 25 mEq/L (23-29); Chloride 103 mEq/L (98-107); Glucose 212 mg/dL (70-105); Magnesium 1.7 mg/dL (1.6-2.6); Osmolality,Calculated 287 (280-300); Potassium 3.7 mEq/L (3.5-5.1); Sodium 131 mEq/L (136-145); eGFR For African Americans > 60 (> 60); eGFR For Non-African Americans > 60 (> 60)
[2021-10-22] MEDS: Valproic Acid INJ 250 MG in 0.9 % Sodium Chloride 100 ML IVPB SCH ×3 (00:12→23:10)
[2021-10-22] MEDS: MetroNIDAZOLE 500 MG/100 ML 500 MG/100 ML BAG IVPB SCH ×4 (00:12→23:10)
[2021-10-22] MEDS: Vancomycin 1,250 MG/262.5 ML IV.SOLN IVPB SCH ×2 (00:12→12:21)
[2021-10-22] MEDS: Artificial Tears SOLN 15 ML BOTTLE BOTH EYES SCH ×6 (00:13→19:42)
[2021-10-22] MEDS: *HR* Metoprolol 5 MG/5 ML VIAL IVP SCH ×2 (00:13→05:40)
[2021-10-22] MEDS: Insulin LISPRO 300 UNITS/3 ML VIAL SUBQ SCH ×6 (00:44→20:11)
[2021-10-22] MEDS: FentaNYL (PF) 1,000 MCG/100 ML IV.SOLN IVC SCH ×3 (04:03→20:34)
[2021-10-22 04:30] LABS: Basophils # 0.1 K/mcL (0.0-0.2); Basophils % 0.3 %; Eosinophils # 0.9 K/mcL (0.0-0.6); Eosinophils % 4.7 %; Hematocrit 20.7 % (35.3-44.9); Hemoglobin 6.5 g/dL (11.5-15.4); Immature Granulocytes % 0.9 % (0-4); Lymphocytes # 1.2 K/mcL (0.6-4.6); Lymphocytes % 6.6 %; Mean Corpuscular HGB Conc 31.4 g/dL (31.6-35.5); Mean Corpuscular Hemoglobin 28.3 pg (28.0-33.3); Mean Platelet Volume 11.4 fL (9.4-12.4); Monocytes # 0.7 K/mcL (0.0-1.3); Monocytes % 3.9 %; Neutrophils # 15.4 K/mcL (1.6-8.9); Platelet Count 211 K/mcL (140-400); Red Cell Distribution Width 19.7 % (11.5-14.5); Segmented Neutrophils % 83.6 %; White Blood Count 18.4 K/mcL (4.3-11.1)
[2021-10-22 04:44] LABS: Alanine Aminotransferase 3 Units/L (7-52); Albumin 1.8 g/dL (3.5-5.7); Albumin/Globulin Ratio 0.6 (1.1-2.2); Alkaline Phosphatase 96 Units/L (34-104); Aspartate Amino Transferase 20 Units/L (13-39); BUN/Creatinine Ratio 43 (6-26); Bilirubin,Total 1.3 mg/dL (0.3-1.0); Blood Urea Nitrogen 35 mg/dL (8-23); Carbon Dioxide 24 mEq/L (23-29); Chloride 104 mEq/L (98-107); Glucose 176 mg/dL (70-105); Magnesium 1.7 mg/dL (1.6-2.6); Osmolality,Calculated 286 (280-300); Phosphorous 4.8 mg/dL (2.7-4.5); Potassium 3.7 mEq/L (3.5-5.1); Sodium 132 mEq/L (136-145); Total Protein 4.8 g/dL (6.4-8.9); eGFR For African Americans > 60 (> 60); eGFR For Non-African Americans > 60 (> 60)
[2021-10-22 04:54] LABS: VBG Ionized Calcium 1.16 mmol/L (1.15-1.35)
[2021-10-22 05:01] LABS: ABG Base Excess -3 mEq/L (-2 to 3); ABG HCO3 23 mEq/L (21-27); ABG Oxygen Saturation 85 % (95-98); ABG PCO2 45 mmHg (35-45); ABG PH 7.32 pH Units (7.32-7.45); ABG PO2 55 mmHg (85-104); ABG TCO2 25 mEq/L (20-26); Blood Gas Modality ASSIST CONTROL; Blood Gas VT 450 cc
[2021-10-22] MEDS: Pantoprazole 40 MG VIAL IVP SCH (05:40)
[2021-10-22] MEDS: Nicotine 21 MG PATCH.TD24 TD SCH (07:21)
[2021-10-22] MEDS: Furosemide 20 MG/2 ML VIAL IVP SCH (07:22)
[2021-10-22] MEDS: Chlorhexidine Rinse 15 ML MOUTHWASH MM SCH ×2 (07:22→19:43)
[2021-10-22] MEDS: Norepinephrine 4 MG/254 ML IV.SOLN IVC SCH ×3 (07:23→22:25)
[2021-10-22] MEDS: Budesonide/Formoterol 80/4.5 1 PUFF INH IH SCH ×2 (08:40→20:04)
[2021-10-22] MEDS: Furosemide 40 MG/4 ML VIAL IVP SCH (08:57)
[2021-10-22] MEDS ORDERED: 0.9 % Sodium Chloride 500 ML ONE (09:48)
[2021-10-22 15:04] LABS: Hematocrit 25.1 % (35.3-44.9); Hemoglobin 7.7 g/dL (11.5-15.4)
[2021-10-22] MEDS: Ipratropium/Albuterol Neb 3 ML IH SCH ×3 (15:57→23:30)
[2021-10-22] MEDS ORDERED: Clinimix 5%-20% SOLUTION 2,000 ML with MVI, adult with vitamin K 10 ML, Sodium Acetat... IVC SCH (17:00)
[2021-10-22] MEDS ORDERED: Clinimix E 5%-15% SOLUTION 2,000 ML with MVI, adult with vitamin K 10 ML, ZN/CU/MN/SE... IVC SCH (17:00)
[2021-10-22] MEDS ORDERED: Albumin Human 5% 12.5 GM/250 ML IV.SOLN IVPB ONE (19:54)
[2021-10-22] MEDS: Insulin DETEMIR 100 UNIT/ML X5UNITS SUBQ SCH (19:59)
[2021-10-23] MEDS: Artificial Tears SOLN 15 ML BOTTLE BOTH EYES SCH ×7 (00:20→23:29)
[2021-10-23] MEDS: Insulin LISPRO 300 UNITS/3 ML VIAL SUBQ SCH ×6 (02:32→20:30)
[2021-10-23] MEDS: FentaNYL (PF) 1,000 MCG/100 ML IV.SOLN IVC SCH ×4 (03:20→22:48)
[2021-10-23 03:37] LABS: Basophils % 0.2 %; Eosinophils # 0.5 K/mcL (0.0-0.6); Eosinophils % 3.4 %; Hematocrit 21.2 % (35.3-44.9); Hemoglobin 6.6 g/dL (11.5-15.4); Immature Granulocytes % 1.1 % (0-4); Lymphocytes # 0.9 K/mcL (0.6-4.6); Lymphocytes % 6.5 %; Mean Corpuscular HGB Conc 31.1 g/dL (31.6-35.5); Mean Corpuscular Hemoglobin 28.2 pg (28.0-33.3); Mean Corpuscular Volume 90.6 fL (83.0-100.0); Mean Platelet Volume 11.7 fL (9.4-12.4); Monocytes # 0.7 K/mcL (0.0-1.3); Monocytes % 4.8 %; Neutrophils # 11.5 K/mcL (1.6-8.9); Platelet Count 208 K/mcL (140-400); Red Blood Count 2.34 M/mcL (3.82-4.97); Red Cell Distribution Width 18.7 % (11.5-14.5); White Blood Count 13.7 K/mcL (4.3-11.1)
[2021-10-23 03:50] LABS: VBG Ionized Calcium 1.16 mmol/L (1.15-1.35)
[2021-10-23] MEDS: Ipratropium/Albuterol Neb 3 ML IH SCH ×6 (03:55→23:08)
[2021-10-23 04:09] LABS: Alanine Aminotransferase 3 Units/L (7-52); Albumin/Globulin Ratio 0.7 (1.1-2.2); Alkaline Phosphatase 100 Units/L (34-104); Aspartate Amino Transferase 17 Units/L (13-39); BUN/Creatinine Ratio 42 (6-26); Bilirubin,Total 1.6 mg/dL (0.3-1.0); Blood Urea Nitrogen 38 mg/dL (8-23); Calcium 7.2 mg/dL (8.6-10.3); Carbon Dioxide 21 mEq/L (23-29); Chloride 105 mEq/L (98-107); Globulin 2.9 g/dL (2.4-3.5); Glucose 174 mg/dL (70-105); Osmolality,Calculated 289 (280-300); Phosphorous 4.7 mg/dL (2.7-4.5); Potassium 4.3 mEq/L (3.5-5.1); Sodium 133 mEq/L (136-145); Total Protein 4.9 g/dL (6.4-8.9); eGFR For African Americans > 60 (> 60); eGFR For Non-African Americans > 60 (> 60)
[2021-10-23 05:14] LABS: ABG Base Excess -4 mEq/L (-2 to 3); ABG HCO3 22 mEq/L (21-27); ABG Oxygen Saturation 91 % (95-98); ABG PCO2 48 mmHg (35-45); ABG PH 7.27 pH Units (7.32-7.45); ABG PO2 70 mmHg (85-104); ABG TCO2 24 mEq/L (20-26); Blood Gas Modality ASSIST CONTROL; Blood Gas VT 450 cc
[2021-10-23] MEDS: Pantoprazole 40 MG VIAL IVP SCH (05:35)
[2021-10-23] MEDS ORDERED: 0.9 % Sodium Chloride 250 ML IVC SCH (05:45)
[2021-10-23] MEDS ORDERED: 0.9 % Sodium Chloride 250 ML ONE (07:44)
[2021-10-23] MEDS: MetroNIDAZOLE 500 MG/100 ML 500 MG/100 ML BAG IVPB SCH ×3 (07:50→23:33)
[2021-10-23] MEDS: Nicotine 21 MG PATCH.TD24 TD SCH (07:57)
[2021-10-23] MEDS: Chlorhexidine Rinse 15 ML MOUTHWASH MM SCH ×2 (08:02→20:18)
[2021-10-23] MEDS: Furosemide 40 MG/4 ML VIAL IVP SCH (08:02)
[2021-10-23] MEDS: Budesonide/Formoterol 80/4.5 1 PUFF INH IH SCH ×2 (08:27→19:45)
[2021-10-23] MEDS: Valproic Acid INJ 250 MG in 0.9 % Sodium Chloride 100 ML IVPB SCH ×2 (13:04→23:34)
[2021-10-23] MEDS ORDERED: Clinimix 5%-20% SOLUTION 2,000 ML with MVI, adult with vitamin K 10 ML, ZN/CU/MN/SE 1... IVC SCH (17:00)
[2021-10-23] MEDS ORDERED: Clinimix 5%-20% SOLUTION 2,000 ML, Parenteral Amino Acid 10% 0 ML with MVI, adult with... IVC SCH (17:00)
[2021-10-23] MEDS: Insulin DETEMIR 100 UNIT/ML X5UNITS SUBQ SCH (22:28)
[2021-10-24] MEDS: Insulin LISPRO 300 UNITS/3 ML VIAL SUBQ SCH ×7 (00:45→23:44)
[2021-10-24] MEDS: Ipratropium/Albuterol Neb 3 ML IH SCH ×6 (03:17→23:50)
[2021-10-24 03:54] LABS: Basophils % 0.2 %; Eosinophils # 0.4 K/mcL (0.0-0.6); Eosinophils % 3.9 %; Hematocrit 24.1 % (35.3-44.9); Hemoglobin 7.7 g/dL (11.5-15.4); Immature Granulocytes % 1.1 % (0-4); Lymphocytes # 0.7 K/mcL (0.6-4.6); Lymphocytes % 7.1 %; Mean Corpuscular Hemoglobin 29.1 pg (28.0-33.3); Mean Corpuscular Volume 90.9 fL (83.0-100.0); Mean Platelet Volume 11.7 fL (9.4-12.4); Monocytes # 0.6 K/mcL (0.0-1.3); Monocytes % 6.5 %; Neutrophils # 7.7 K/mcL (1.6-8.9); Platelet Count 201 K/mcL (140-400); Red Blood Count 2.65 M/mcL (3.82-4.97); Red Cell Distribution Width 18.1 % (11.5-14.5); Segmented Neutrophils % 81.2 %; White Blood Count 9.4 K/mcL (4.3-11.1)
[2021-10-24 04:11] LABS: Alanine Aminotransferase 3 Units/L (7-52); Albumin 1.9 g/dL (3.5-5.7); Albumin/Globulin Ratio 0.6 (1.1-2.2); Alkaline Phosphatase 126 Units/L (34-104); Aspartate Amino Transferase 17 Units/L (13-39); BUN/Creatinine Ratio 42 (6-26); Bilirubin,Total 1.9 mg/dL (0.3-1.0); Blood Urea Nitrogen 37 mg/dL (8-23); Calcium 7.4 mg/dL (8.6-10.3); Carbon Dioxide 22 mEq/L (23-29); Chloride 105 mEq/L (98-107); Globulin 3.1 g/dL (2.4-3.5); Glucose 134 mg/dL (70-105); Osmolality,Calculated 285 (280-300); Phosphorous 4.4 mg/dL (2.7-4.5); Potassium 3.9 mEq/L (3.5-5.1); Sodium 132 mEq/L (136-145); eGFR For African Americans > 60 (> 60); eGFR For Non-African Americans > 60 (> 60)
[2021-10-24 04:23] LABS: ABG Base Excess -4 mEq/L (-2 to 3); ABG HCO3 23 mEq/L (21-27); ABG Oxygen Saturation 91 % (95-98); ABG PCO2 52 mmHg (35-45); ABG PH 7.26 pH Units (7.32-7.45); ABG PO2 71 mmHg (85-104); ABG TCO2 25 mEq/L (20-26); Blood Gas Modality ASSIST CONTROL; Blood Gas VT 450 cc
[2021-10-24 04:26] LABS: VBG Ionized Calcium 1.22 mmol/L (1.15-1.35)
[2021-10-24] MEDS: Artificial Tears SOLN 15 ML BOTTLE BOTH EYES SCH ×6 (04:50→23:52)
[2021-10-24] MEDS: Pantoprazole 40 MG VIAL IVP SCH (05:49)
[2021-10-24] MEDS: FentaNYL (PF) 1,000 MCG/100 ML IV.SOLN IVC SCH (05:59)
[2021-10-24] MEDS: Budesonide/Formoterol 80/4.5 1 PUFF INH IH SCH ×2 (08:24→19:58)
[2021-10-24] MEDS: Furosemide 40 MG/4 ML VIAL IVP SCH ×2 (08:40→16:38)
[2021-10-24] MEDS: Chlorhexidine Rinse 15 ML MOUTHWASH MM SCH ×2 (08:40→20:01)
[2021-10-24] MEDS: Nicotine 21 MG PATCH.TD24 TD SCH (08:41)
[2021-10-24] MEDS: Dexmedetomidine HCl 400 MCG/100 ML MLS IVC SCH ×2 (09:15→22:39)
[2021-10-24] MEDS: Valproic Acid INJ 250 MG in 0.9 % Sodium Chloride 100 ML IVPB SCH ×2 (12:59→23:45)
[2021-10-24] MEDS ORDERED: Clinimix 5%-20% SOLUTION 2,000 ML with MVI, adult with vitamin K 10 ML, ZN/CU/MN/SE 1... IVC SCH (17:00)
[2021-10-24] MEDS: Insulin DETEMIR 100 UNIT/ML X5UNITS SUBQ SCH (20:01)
[2021-10-25] MEDS: Ipratropium/Albuterol Neb 3 ML IH SCH ×5 (03:40→21:41)
[2021-10-25] MEDS: Insulin LISPRO 300 UNITS/3 ML VIAL SUBQ SCH ×5 (04:07→21:03)
[2021-10-25] MEDS: Artificial Tears SOLN 15 ML BOTTLE BOTH EYES SCH ×5 (04:07→21:08)
[2021-10-25 04:42] LABS: ABG Base Excess -2 mEq/L (-2 to 3); ABG HCO3 23 mEq/L (21-27); ABG Oxygen Saturation 98 % (95-98); ABG PCO2 39 mmHg (35-45); ABG PH 7.39 pH Units (7.32-7.45); ABG PO2 98 mmHg (85-104); ABG TCO2 25 mEq/L (20-26); Blood Gas Modality AF; Blood Gas VT 450 cc
[2021-10-25 04:49] LABS: VBG Ionized Calcium 1.21 mmol/L (1.15-1.35)
[2021-10-25 05:00] LABS: Basophils % 0.4 %; Eosinophils # 0.2 K/mcL (0.0-0.6); Eosinophils % 2.8 %; Hematocrit 22.5 % (35.3-44.9); Lymphocytes # 0.8 K/mcL (0.6-4.6); Mean Corpuscular HGB Conc 31.1 g/dL (31.6-35.5); Mean Platelet Volume 11.4 fL (9.4-12.4); Monocytes # 0.6 K/mcL (0.0-1.3); Monocytes % 8.8 %; Neutrophils # 5.2 K/mcL (1.6-8.9); Nucleated Red Blood Cells 0.3 /100 WBC (0); Platelet Count 194 K/mcL (140-400); Red Cell Distribution Width 18.2 % (11.5-14.5); White Blood Count 6.8 K/mcL (4.3-11.1)
[2021-10-25 05:57] LABS: Alanine Aminotransferase 3 Units/L (7-52); Albumin 1.8 g/dL (3.5-5.7); Albumin/Globulin Ratio 0.6 (1.1-2.2); Alkaline Phosphatase 131 Units/L (34-104); Aspartate Amino Transferase 20 Units/L (13-39); BUN/Creatinine Ratio 47 (6-26); Bilirubin,Total 1.8 mg/dL (0.3-1.0); Blood Urea Nitrogen 41 mg/dL (8-23); Calcium 7.5 mg/dL (8.6-10.3); Carbon Dioxide 25 mEq/L (23-29); Chloride 103 mEq/L (98-107); Globulin 3.2 g/dL (2.4-3.5); Glucose 101 mg/dL (70-105); Magnesium 1.8 mg/dL (1.6-2.6); Osmolality,Calculated 284 (280-300); Sodium 132 mEq/L (136-145); eGFR For African Americans > 60 (> 60); eGFR For Non-African Americans > 60 (> 60)
[2021-10-25] MEDS: Pantoprazole 40 MG VIAL IVP SCH (06:08)
[2021-10-25] MEDS ORDERED: Albumin 25% 25gram/100mL 25 GM/100 ML IV.SOLN IVPB ONE (06:12)
[2021-10-25] MEDS: Furosemide 40 MG/4 ML VIAL IVP SCH ×2 (07:35→16:22)
[2021-10-25] MEDS: Nicotine 21 MG PATCH.TD24 TD SCH (07:35)
[2021-10-25] MEDS: Chlorhexidine Rinse 15 ML MOUTHWASH MM SCH ×2 (07:35→21:08)
[2021-10-25] MEDS: Dexmedetomidine HCl 400 MCG/100 ML MLS IVC SCH (07:55)
[2021-10-25] MEDS: Budesonide/Formoterol 80/4.5 1 PUFF INH IH SCH ×2 (08:02→21:41)
[2021-10-25] MEDS: Norepinephrine 4 MG/254 ML IV.SOLN IVC SCH ×2 (09:50→23:55)
[2021-10-25] MEDS: *HR* Metoprolol 5 MG/5 ML VIAL IVP PRN ×2 (10:47→17:01)
[2021-10-25] MEDS: Valproic Acid INJ 250 MG in 0.9 % Sodium Chloride 100 ML IVPB SCH (11:26)
[2021-10-25] MEDS ORDERED: Clinimix E 5%-15% SOLUTION 2,000 ML with MVI, adult with vitamin K 10 ML, ZN/CU/MN/SE... IVC SCH (17:00)
[2021-10-25] MEDS ORDERED: Clinimix E 5%-20% SOLUTION 2,000 ML with MVI, adult with vitamin K 10 ML, ZN/CU/MN/SE... IVC SCH (17:00)
[2021-10-25] MEDS: Insulin DETEMIR 100 UNIT/ML X5UNITS SUBQ SCH (21:02)
[2021-10-26] MEDS: Insulin LISPRO 300 UNITS/3 ML VIAL SUBQ SCH ×6 (00:27→22:08)
[2021-10-26] MEDS: Valproic Acid INJ 250 MG in 0.9 % Sodium Chloride 100 ML IVPB SCH ×2 (00:28→12:07)
[2021-10-26] MEDS: Dexmedetomidine HCl 400 MCG/100 ML MLS IVC SCH ×2 (01:40→04:50)
[2021-10-26] MEDS: Ipratropium/Albuterol Neb 3 ML IH SCH ×4 (03:41→20:15)
[2021-10-26] MEDS: Artificial Tears SOLN 15 ML BOTTLE BOTH EYES SCH ×6 (03:48→22:08)
[2021-10-26 03:55] LABS: Alanine Aminotransferase 4 Units/L (7-52); Albumin 2.4 g/dL (3.5-5.7); Albumin/Globulin Ratio 0.6 (1.1-2.2); Alkaline Phosphatase 253 Units/L (34-104); Aspartate Amino Transferase 24 Units/L (13-39); BUN/Creatinine Ratio 49 (6-26); Bilirubin,Total 1.6 mg/dL (0.3-1.0); Blood Urea Nitrogen 47 mg/dL (8-23); Calcium 8.1 mg/dL (8.6-10.3); Carbon Dioxide 24 mEq/L (23-29); Chloride 105 mEq/L (98-107); Globulin 3.8 g/dL (2.4-3.5); Glucose 147 mg/dL (70-105); Magnesium 2.1 mg/dL (1.6-2.6); Osmolality,Calculated 295 (280-300); Phosphorous 4.9 mg/dL (2.7-4.5); Potassium 4.3 mEq/L (3.5-5.1); Sodium 135 mEq/L (136-145); Total Protein 6.2 g/dL (6.4-8.9); eGFR For African Americans > 60 (> 60); eGFR For Non-African Americans 57 (> 60)
[2021-10-26 04:01] LABS: Basophils % 0.4 %; Eosinophils # 0.1 K/mcL (0.0-0.6); Eosinophils % 1.3 %; Hematocrit 24.7 % (35.3-44.9); Hemoglobin 7.5 g/dL (11.5-15.4); Lymphocytes # 0.8 K/mcL (0.6-4.6); Lymphocytes % 12.1 %; Mean Corpuscular HGB Conc 30.4 g/dL (31.6-35.5); Mean Corpuscular Hemoglobin 28.1 pg (28.0-33.3); Mean Corpuscular Volume 92.5 fL (83.0-100.0); Mean Platelet Volume 11.8 fL (9.4-12.4); Monocytes # 0.7 K/mcL (0.0-1.3); Monocytes % 10.5 %; Nucleated Red Blood Cells 0.3 /100 WBC (0); Platelet Count 202 K/mcL (140-400); Red Blood Count 2.67 M/mcL (3.82-4.97); Red Cell Distribution Width 18.6 % (11.5-14.5); Segmented Neutrophils % 74.7 %; White Blood Count 6.7 K/mcL (4.3-11.1)
[2021-10-26] MEDS: FentaNYL (PF) 1,000 MCG/100 ML IV.SOLN IVC SCH (05:53)
[2021-10-26] MEDS: Pantoprazole 40 MG VIAL IVP SCH (05:53)
[2021-10-26] MEDS: Furosemide 40 MG/4 ML VIAL IVP SCH (08:46)
[2021-10-26] MEDS: Nicotine 21 MG PATCH.TD24 TD SCH (08:46)
[2021-10-26 08:56] LABS: Triglycerides 82 mg/dL (< 150)
[2021-10-26] MEDS: Chlorhexidine Rinse 15 ML MOUTHWASH MM SCH (09:00)
[2021-10-26] MEDS: Budesonide/Formoterol 80/4.5 1 PUFF INH IH SCH (10:44)
[2021-10-26] MEDS ORDERED: Clinimix E 5%-20% SOLUTION 2,000 ML with MVI, adult with vitamin K 10 ML, ZN/CU/MN/SE... IVC SCH (11:58)
[2021-10-26] MEDS ORDERED: *HR* Metoprolol 5 MG/5 ML VIAL IVP PRN ×2 (11:58→22:23)
[2021-10-26] MEDS ORDERED: D10% in Water 500 ML IVC PRN ×2 (11:58→22:23)
[2021-10-26] MEDS ORDERED: Naloxone 0.4 MG/ML INJ IVP PRN ×2 (11:58→22:23)
[2021-10-26] MEDS ORDERED: Artificial Tears SOLN 15 ML BOTTLE BOTH EYES PRN (11:58)
[2021-10-26] MEDS ORDERED: 0.9 % Sodium Chloride 250 ML IVC SCH (11:58)
[2021-10-26] MEDS ORDERED: Clinimix 5%-20% SOLUTION 2,000 ML, Parenteral Amino Acid 10% 0 ML with MVI, adult with... IVC SCH (17:00)
[2021-10-26] MEDS ORDERED: Fat Emulsion 250 ML IVPB SCH ×2 (17:00)
[2021-10-26] MEDS ORDERED: Clinimix 5%-20% SOLUTION 2,000 ML with MVI, adult with vitamin K 10 ML, ZN/CU/MN/SE 1... IVC SCH ×2 (17:00→22:23)
[2021-10-26] MEDS ORDERED: Furosemide 40 MG/4 ML VIAL IVP SCH (17:00)
[2021-10-26] MEDS ORDERED: Insulin DETEMIR 100 UNIT/ML X5UNITS SUBQ SCH (21:00)
[2021-10-26] MEDS ORDERED: Chlorhexidine Rinse 15 ML MOUTHWASH MM SCH (21:00)
[2021-10-26] MEDS ORDERED: Budesonide/Formoterol 80/4.5 1 PUFF INH IH SCH (22:00)
[2021-10-27] MEDS: Insulin LISPRO 300 UNITS/3 ML VIAL SUBQ SCH ×4 (00:48→13:12)
[2021-10-27] MEDS: Valproic Acid INJ 250 MG in 0.9 % Sodium Chloride 100 ML IVPB SCH ×2 (00:58→08:58)
[2021-10-27] MEDS: Ipratropium/Albuterol Neb 3 ML IH SCH ×2 (04:05→08:11)
[2021-10-27 04:58] LABS: Basophils % 0.5 %; Eosinophils # 0.1 K/mcL (0.0-0.6); Eosinophils % 1.4 %; Hematocrit 25.7 % (35.3-44.9); Hemoglobin 7.8 g/dL (11.5-15.4); Lymphocytes # 0.7 K/mcL (0.6-4.6); Lymphocytes % 9.3 %; Mean Corpuscular HGB Conc 30.4 g/dL (31.6-35.5); Mean Corpuscular Hemoglobin 28.1 pg (28.0-33.3); Mean Corpuscular Volume 92.4 fL (83.0-100.0); Mean Platelet Volume 11.7 fL (9.4-12.4); Monocytes # 0.9 K/mcL (0.0-1.3); Monocytes % 11.4 %; Neutrophils # 5.9 K/mcL (1.6-8.9); Platelet Count 211 K/mcL (140-400); Red Blood Count 2.78 M/mcL (3.82-4.97); Red Cell Distribution Width 18.7 % (11.5-14.5); Segmented Neutrophils % 76.4 %; White Blood Count 7.7 K/mcL (4.3-11.1)
[2021-10-27 05:10] LABS: Alanine Aminotransferase 4 Units/L (7-52); Albumin 2.3 g/dL (3.5-5.7); Albumin/Globulin Ratio 0.6 (1.1-2.2); Alkaline Phosphatase 188 Units/L (34-104); Aspartate Amino Transferase 21 Units/L (13-39); BUN/Creatinine Ratio 56 (6-26); Bilirubin,Total 1.1 mg/dL (0.3-1.0); Blood Urea Nitrogen 48 mg/dL (8-23); Calcium 8.1 mg/dL (8.6-10.3); Carbon Dioxide 28 mEq/L (23-29); Chloride 104 mEq/L (98-107); Globulin 3.9 g/dL (2.4-3.5); Glucose 152 mg/dL (70-105); Osmolality,Calculated 294 (280-300); Phosphorous 4.4 mg/dL (2.7-4.5); Potassium 3.9 mEq/L (3.5-5.1); Sodium 134 mEq/L (136-145); Total Protein 6.2 g/dL (6.4-8.9); eGFR For African Americans > 60 (> 60); eGFR For Non-African Americans > 60 (> 60)
[2021-10-27] MEDS ORDERED: Pantoprazole 40 MG VIAL IVP SCH ×2 (06:30)
[2021-10-27 07:38] VITALS: BP 147/66; PULSE 123; TEMP 98.2; O2SAT 99
[2021-10-27] MEDS ORDERED: Furosemide 40 MG/4 ML VIAL IVP SCH (08:00)
[2021-10-27 08:53] LABS: ABG Base Excess 1 mEq/L (-2 to 3); ABG HCO3 28 mEq/L (21-27); ABG Oxygen Saturation 98 % (95-98); ABG PCO2 57 mmHg (35-45); ABG PO2 109 mmHg (85-104); ABG TCO2 30 mEq/L (20-26)
[2021-10-27] MEDS ORDERED: Valproic Acid INJ 250 MG in 0.9 % Sodium Chloride 100 ML IVPB SCH (09:00)
[2021-10-27] MEDS ORDERED: Nicotine 21 MG PATCH.TD24 TD SCH ×2 (09:00)
[2021-10-27] MEDS ORDERED: Budesonide/Formoterol 80/4.5 1 PUFF INH IH SCH (10:00)
[2021-10-27] MEDS ORDERED: Morphine Sulfate 2 MG/ML SYRINGE IVP PRN (10:48)
[2021-10-27] MEDS ORDERED: *HR* LORazepam 2 MG/ML VIAL IVP PRN (10:49)
[2021-10-27] MEDS ORDERED: Scopolamine Patch 1.5 MG PATCH.TD72 TD SCH (14:00)
[2021-10-27] MEDS ORDERED: Haloperidol Lactate 5 MG/ML VIAL IVP PRN (14:26)
[2021-10-27] MEDS ORDERED: Artificial Tears SOLN 15 ML BOTTLE BOTH EYES SCH (17:00)
[2021-10-27] MEDS ORDERED: Fat Emulsion 250 ML IVPB SCH (17:00)
[2021-10-27] MEDS ORDERED: Insulin DETEMIR 100 UNIT/ML X5UNITS SUBQ SCH (21:00)
== END 2021-10-27 14:30 | disposition expired | DRG 329 ==
LOC: 3ANU → SUATTDRO 10-03 03:41 → ICNU 10-11 22:54 → 3ANU 10-17 22:34 → 2NENU 10-20 05:31 → 2NNU 10-20 15:41 → ICNU 10-20 22:06 → 3ANU 10-26 15:13 → 2ANU 10-27 13:49
PROVIDERS: ADMIT Internal Medicine; ATTEND Family Medicine